=== PATIENT | male | born 1950 | race African-American/Black ===

== ENCOUNTER 2017-03-28 12:58 | Outpatient (CLI) | payer MEDICARE, MEDICAID ==
--- NOTE | 2017-03-28 18:22 | NM ---
RADIONUCLIDE THERAPY WITH RADIUM 223: 03/28/17 HISTORY: 66-year-old male with prostate cancer and bone metastasis. RADIONUCLIDE THERAPY: After discussing the risks, benefits and alternative and radiation issues with the patient, verbal a nd written consent was obtained for administration of [place] 223. The patient verbalized understandi ng. 138 microcuries of [place] 223 was slowly injected intravenously over one minute. There were no immed iate complications. This was the first of six treatments. Patient will return for the second treatment in six weeks. POS: AMY
== END 2017-03-28 12:59 | disposition home or self-care (01) ==
LOC: NM 12:58
PROVIDERS: ATTEND Radiology Radiation Oncology
DX: C79.51 Secondary malignant neoplasm of bone (principal); C61 Malignant neoplasm of prostate; M25.551 Pain in right hip; M79.604 Pain in right leg
CPT/HCPCS: 79101; A9606

== ENCOUNTER 2017-05-08 13:03 | Outpatient (CLI) | payer MEDICARE, OTHER ==
--- NOTE | 2017-05-08 15:21 | NM ---
RADIONUCLIDE THERAPY WITH RADIUM 223: Date: 05/08/17 HISTORY: 67-year-old male with prostate cancer and bone metastases. RADIONUCLIDE THERAPY: After discussing the risks, benefits and alternatives, and radiation precaution issues with the patie nt, verbal and written consent was obtained for intravenous administration of radium 223. The patient verbalized understanding. 142 microcuries of radium 223 were slowly injected intravenously over 1 minute. There were no immedia te complications. This was the second of six treatments. Patient will return for the third treatment in six weeks. POS: AMY
== END 2017-05-08 13:04 | disposition home or self-care (01) ==
LOC: NM 13:03
PROVIDERS: ATTEND Radiology Radiation Oncology
DX: C79.51 Secondary malignant neoplasm of bone (principal); C61 Malignant neoplasm of prostate
CPT/HCPCS: 79101; A9606

== ENCOUNTER 2017-05-22 16:30 | Outpatient (CLI) | payer MEDICARE, MEDICAID ==
--- NOTE | 2017-05-22 21:29 | MRI ---
THORACIC SPINE MRI WITH AND WITHOUT IV CONTRAST 05/22/17 PROVIDED CLINICAL HISTORY: Prostate cancer with bone metastases and mid back pain. FINDINGS: Comparison is made with the study dated 10/20/15. Spinal alignment appears normal. Vertebral body heights appear preserved. There is diffuse heterogene ity of the regional marrow signal including both vertebral bodies and posterior elements compatible w ith diffuse regional osseous metastatic disease. There is bony expansion if not epidural spread of tu mor at the posterior aspect of the T7 and T8 vertebral bodies. There is also tumor noted likely arisi ng from the left and right pedicles at the level of T8 as well as possibly also from the left lamina. This produces severe central canal stenosis with paucity also from the left lamina. This produces se miller central canal stenosis with paucity of CSF signal intensity surrounding the cord and paucity of fat signal intensity within the dorsal spinal canal. There is probably cord signal abnormality on the fluid sensitive sequences within the thoracic spinal cord at the T7 and T8 levels. There is associat ed foraminal narrowing to the left of midline at T8 and to the right of midline at T8. No additional significant central canal stenosis is apparent. The thoracic spinal cord demonstrates a n otherwise unremarkable MR appearance. Other than the contrast enhancement associated with the bone lesions, as well as the epidural enhancement seen at the T7-8 level, there is no abnormal contrast en hancement evident. IMPRESSION: Diffuse bony metastatic disease involving the thoracic spine, producing severe central canal stenosis at the T8 level with associated probable cord signal abnormality. Possibility of epidural involvemen t of tumor is not excluded. The findings regarding the canal stenosis and possible cord edema communi cated to Dr. Patel via telephone 6:01 p.m., 05/22/17. Code CR POS: AMY
== END 2017-05-22 16:31 | disposition home or self-care (01) ==
LOC: MRI 16:30
PROVIDERS: ATTEND Radiology Radiation Oncology
DX: C79.51 Secondary malignant neoplasm of bone (principal); C61 Malignant neoplasm of prostate; M48.04 Spinal stenosis, thoracic region
CPT/HCPCS: 72157

== ENCOUNTER 2017-06-15 12:12 | Outpatient (CLI) | payer MEDICARE, MEDICAID ==
--- NOTE | 2017-06-15 12:51 | NM ---
RADIONUCLIDE THERAPY WITH RADIUM-223: HISTORY: A 67-year-old male with prostate cancer and bone metastases. RADIONUCLIDE THERAPY: After discussing the risks, benefits, alternatives, and radiation precaution issues with the patient, verbal and written consent were obtained for intravenous administration of [place]-223. The patient verbalized understanding. 140 microcuries of [place]-223 were slowly injected intravenously over 1 minute. There were no immedi ate complications. This was the third of six treatments. The patient will return for the fourth treatment in six weeks. POS: AMY
== END 2017-06-15 12:13 | disposition home or self-care (01) ==
LOC: NM 12:12
PROVIDERS: ATTEND Radiology Radiation Oncology
DX: C79.51 Secondary malignant neoplasm of bone (principal); C61 Malignant neoplasm of prostate; M25.551 Pain in right hip; M79.604 Pain in right leg
CPT/HCPCS: 79101; A9606

== ENCOUNTER 2017-07-16 11:37 | Outpatient (CLI) | payer MEDICARE, MEDICAID ==
[~2017-07-16 11:37] MED LIST: Iopamidol 370 76% 100 ML VIAL ONE
[2017-07-16 12:19] LABS: Estimated GFR-MDRD - POC Greater than 90
--- NOTE | 2017-07-16 14:00 | CT ---
CT ANGIO OF CHEST PERFORMED WITH INTRAVENOUS CONTRAST ENHANCEMENT WITH 3D RECONSTRUCTIONS: HISTORY: Worsening shortness of breath. History of prostate cancer with bone mets. FINDINGS: Lungs show some atelectatic change in the lung bases. No confluent infiltrative process is seen. No pulmonary nodules. There is no significant mediastinal or hilar adenopathy. The thoracic aorta is normal in caliber. There is good pulmonary artery opacification without CT evidence for a pulmonary embolus. Visualized liver parenchyma shows no focal abnormalities. Right and left adrenal glands are normal in size. IMPRESSION: 1. Linear parenchymal change in the lung bases suggestive of atelectasis. 2. No CT evidence for pulmonary embolus. POS: EKATERINAH
== END 2017-07-16 11:38 | disposition home or self-care (01) ==
LOC: CT 11:37
PROVIDERS: ATTEND Radiology Radiation Oncology
DX: C61 Malignant neoplasm of prostate (principal); C79.51 Secondary malignant neoplasm of bone; R06.02 Shortness of breath
CPT/HCPCS: 71275

== ENCOUNTER 2017-07-25 09:56 | Outpatient (CLI) | payer MEDICARE, MEDICAID ==
--- NOTE | 2017-07-25 14:23 | NM ---
WHOLE BODY BONE SCAN: HISTORY: Malignant neoplasm of prostate. RADIOPHARMACEUTICAL: 33 mCi of Technetium 99m-MDP injected intravenously. COMPARISON: 02/09/17. FINDINGS: Numerous foci of tracer uptake is noted in the skull, spine, pelvis, ribs, sternum, clavicles, pelvis , right femur, and right tibia. Some of these lesions are worse, some improved and some stable. Tra cer excretion through the kidneys within normal limits. IMPRESSION: Widespread osseous metastatic disease with mixed response to therapy since 02/09/17. POS: AMY
== END 2017-07-25 09:57 | disposition home or self-care (01) ==
LOC: NM 09:56
PROVIDERS: ATTEND Radiology Radiation Oncology
DX: C61 Malignant neoplasm of prostate (principal); C79.51 Secondary malignant neoplasm of bone
CPT/HCPCS: 78306; A9503

== ENCOUNTER 2017-07-27 13:10 | Outpatient (CLI) | payer MEDICARE, MEDICAID ==
--- NOTE | 2017-07-27 14:23 | NM ---
RADIONUCLIDE THERAPY: (With [place]-223) Date: 07/27/17 HISTORY: 67-year-old male with prostate cancer and bone metastasis. TECHNIQUE/FINDINGS: After discussing the risks, benefits, alternatives, and radiation precaution issues with the patient, verbal and written consent were obtained for intravenous administration of [place]-223. The patient v erbalized understanding. 140 microcuries of [place]-223 were slowly injected intravenously over 1 minute. There were no immedia te complications. This was the 4th of 6 treatments. The patient will return for the 5th treatment in 6 weeks. IMPRESSION: Radionuclide therapy with [place]-223 as above. POS: AMY
== END 2017-07-27 13:11 | disposition home or self-care (01) ==
LOC: NM 13:10
PROVIDERS: ATTEND Radiology Radiation Oncology
DX: C61 Malignant neoplasm of prostate (principal); C79.51 Secondary malignant neoplasm of bone
CPT/HCPCS: 79101; A9606

== ENCOUNTER 2017-10-24 14:49 | Outpatient (CLI) | payer MEDICARE, MEDICAID | END 2017-10-24 14:50 | disposition home or self-care (01) | LOC: BICRAD 14:49 | PROVIDERS: ATTEND Internal Medicine Medical Oncology | DX: C61 Malignant neoplasm of prostate (principal); R11.2 Nausea with vomiting, unspecified; R16.0 Hepatomegaly, not elsewhere classified ==

== ENCOUNTER 2017-11-19 01:40 | Inpatient (IN) | payer MEDICARE, MEDICAID ==
[2017-11-19] MEDS ORDERED: Naloxone HCl 0.4 mg/ml Vial ONE (02:09)
[2017-11-19] MEDS ORDERED: Acetaminophen 650 MG Suppository ONE (02:15)
[2017-11-19 02:18] LABS: Band 27 % (5-11); Hemoglobin 8.6 g/dL (14.0-18.0); Lymphocytes 12 % (21-51); MDiff Complete? YES; Mean Corpuscular HGB CONC 32.4 g/dL (32.0-36.0); Mean Corpuscular Hemoglobin 32.2 pg (27.0-31.0); Mean Corpuscular Volume 99.4 fl (80.0-94.0); Mean Platelet Volume 5.5 fL (7.4-10.4); Metamyelocyte 2 % (0-0); Neutrophil 58 % (42-75); PLT Morphology Comment Appears Increased; Platelet Count 600 thou/uL (130-400); RBC Distribution Width 13.6 % (11.5-14.5); Red Blood Cell (RBC) Count 2.66 mill/uL (4.70-6.10); White Blood Cell (WBC) Count 12.2 thou/uL (4.8-10.8)
[2017-11-19 02:21] LABS: ALT (SGPT) 12 U/L (8-55); AST (SGOT) 25 U/L (5-34); Albumin 3.7 g/dL (3.4-4.8); Alkaline Phosphatase 114 U/L (40-150); Anion Gap 22 mmol/L (10-20); BUN (Urea Nitrogen) 55 mg/dL (8.4-25.7); Bilirubin, Total 0.8 mg/dL (0.2-1.2); Calc. Creatinine Clearance 0 mL/min (70-130); Carbon Dioxide 27 mmol/L (23-31); Chloride 92 mmol/L (98-107); Estimated GFR-MDRD 29; Globulin 3.9 g/dL (2.4-3.5); Glucose 186 mg/dL (80-115); Potassium 4.8 mmol/L (3.5-5.1); Protein, Total 7.6 g/dL (5.8-8.1); Sodium 136 mmol/L (136-145)
[2017-11-19 02:24] LABS: Bilirubin Small (Negative); Blood, Urine Negative (Negative); Clarity CLOUDY (Clear); Glucose, Urine (Dipstick) Negative (Negative); Leukocyte Negative (Negative); Nitrite Negative (Negative); Protein, Urine (Dipstick) Negative (Neg-Trace); Specific Gravity, Urine 1.025 (1.002-1.036); Urobilinogen 0.2 mg/dL (0.2-1.0)
[2017-11-19 02:24] LABS: Calcium 12.2 mg/dL (7.8-10.44)
[2017-11-19] MEDS ORDERED: Cefepime 2 GM in Sodium Chloride 0.9% 100 ML IVPB SCH (03:00)
[2017-11-19] MEDS ORDERED: Ondansetron HCl/PF 4 MG/2 ML Vial IVP PRN (04:44)
[2017-11-19] MEDS ORDERED: Ondansetron ODT 4 MG TAB SL PRN (04:44)
[2017-11-19] MEDS ORDERED: Acetaminophen 325 MG TAB PO PRN (04:44)
[2017-11-19 05:00] VITALS: BMI 27.2
[2017-11-19] MEDS: Sodium Chloride 0.9% 1,000 ML IV SCH ×2 (05:20→23:36)
--- NOTE | 2017-11-19 05:45 | HP ---
CHIEF COMPLAINT: Altered mental status and rigors. HISTORY OF PRESENT ILLNESS: Patient is a 67-year-old male with a history of known metastatic prostat e cancer with metastases to multiple sites of the bone including the spine cranium and ribs. Recentl y, the patient was on hydrocodone for pain but was continued to have significant pain in the hips. [place] [facility] saw Dr. Irby who subsequently encouraged the patient to MS Contin 30 mg p.o. b.i.d. It was onl y a few days ago. Since that time, the patient has been "out of it" according to his fiancee who is with him tonight. The patient has not been wanting to eat or drink much. Therefore, last evening, s he attempted to give him an Ensure to drink. After he drink the Ensure within about an hour, he [place] vomiting. After the vomiting, he started having some wheezing and then experienced some rigors. At that time, the patient's fiancee realized there was something more going on and she brought him t o the emergency department. He continues to be fairly out of it. Apparently, the patient did respon d to some Narcan in the emergency department, became more awake and alert. REVIEW OF SYSTEMS: Notable for those things in history of present illness. Patient also has had sammie e constipation that has been primarily related to his pain medications. Other than the events of the last 4 days, the patient's fiancee indicates that she is unaware of any significant other issues in an eleven-system review. PAST MEDICAL HISTORY: Notable for the metastatic prostate cancer. There is no other past medical hi story. PAST SURGICAL HISTORY: None. FAMILY HISTORY: Patient's mother had diabetes and some heart disease. Father's history is not known . Patient has multiple siblings with diabetes mellitus. SOCIAL HISTORY: Includes tobacco abuse, but the patient quit in 1988. He has no alcohol consumption . He does have the fiancee. He is a FULL CODE. Patient is unable to name a surrogate decision make r. ALLERGIES: NEOSPORIN. CURRENT MEDICATIONS: Xtandi 160 mg p.o. daily, gabapentin 200 mg p.o. b.i.d., Flomax 0.4 mg at bedti me, [place] 10/325 one p.o. q.6 hours p.r.n. and morphine extended-release 30 mg p.o. q.12 hours. PHYSICAL EXAMINATION: VITAL SIGNS: Temperature is 100.2, pulse 112, respirations 18, O2 sat 92% on 2 liters, BP is 124/65. GENERAL APPEARANCE: Age appropriate male. He is in no distress, but he does appear encephalopathic. Patient tends to be somnolent. He will occasionally open his eyes, but not focus; however, when ag gressively awaken the patient will make eye contact answer questions and then become a little more so mnolent again. HEENT: Pupils are constricted. There is no OP lesions. NECK: Supple and symmetric. CARDIOVASCULAR: Regular rate and rhythm without murmurs. LUNGS: Have some scattered rales primarily at the bases and slightly worse on the right. ABDOMEN: Soft, nondistended, positive bowel sounds. SKIN: Warm and dry with no edema. LABORATORY DATA: Sodium 136, potassium 4.8, chloride 92, CO2 of 27, BUN 55, creatinine is 2.69, gluc ose 186. Lactic acid 3.2, calcium 12.2. AST is 25, ALT is 12. Albumin is 3.7. White count 12.2, h emoglobin 8.6, MCV 99.4, platelet count is 600, is 58% neutrophils, 27% bands, 12% lymphocytes. Urin alysis basically negative. Chest x-ray by my interpretation appears to have some scattered bilateral alveolar infiltrates, which seemed to be more on the right. CT of the brain reveals no hemorrhage. IMPRESSION AND PLAN: 1. Sepsis. The patient appears to have likely aspirated. He has been tachycardic and febrile with some hypoxia. He does not have a significant leukocytosis, but profound bandemia. Patient has recei lance cefepime and Levaquin and that was continued now. We will await blood cultures. Patient has reece arently received about 3 liters of fluid total at this point. We will continue with 100 mL normal sa line an hour. Rechecking lactic acid level now. 2. Acute renal failure. Patient has significant elevation of his BUN and creatinine, which are new. Patient's prior creatinine levels have typically been below one. Again, patient has already receiv ed significant bullous hydration. We will continue with those and recheck his values. 3. Hypercalcemia. This is likely due to combination of some dehydration as well as the bone mets. Initial best treatment option is IV hydration. We will recheck those values are shortly to confirm t hat it is improving. 4. Aspiration. Patient appears to have had some vomiting and likely had some aspiration as this imm ediately preceded the patient's wheezing and rigors. He is on broad-spectrum antibiotics for coverag e. 5. Narcotic overdose. Patient recently had some changes in his medications and appeared to be causi ng some significant obtundation. He did receive a dose of Narcan in the ER. He appears to be stable at this time. We will hold off on any additional doses and allow him to metabolize what he has. 6. Metastatic prostate cancer with multiple bony metastases. The patient at some point need some mo re pain medications; however, we will hold off on that until he improves the need. In the meantime, we will consult Dr. Irby.
[2017-11-19 05:54] LABS: Lactic Acid 1.1 mmol/L (0.5-2.2)
--- NOTE | 2017-11-19 07:46 | RAD ---
ONE VIEW CHEST: HISTORY: Altered mental status. FINDINGS: AP view chest is obtained on 11/19/17. Comparison is made to previous exam from 09/24/15. AP view chest demonstrates areas of heterogeneous bony density throughout numerous long bones and spi ne and ribs. This is compatible with extensive osseous metastatic disease. Pulmonary vascular congestion is seen. There are areas of airspace opacity seen in both lung bases as well as some airspace opacities seen i n the perihilar areas. Findings may represent possible bilateral areas of pneumonia. IMPRESSION: 1. Diffuse and extensive osseous metastatic disease. 2. Airspace opacities compatible with possible bilateral pneumonia. Followup films to resolution re commended. POS: [facility]
--- NOTE | 2017-11-19 08:37 | CT ---
PRELIMINARY REPORT/[facility]/EMERGENTY AFTER-HOURS PROCEDURE CT Head Without Intravenous Contrast CLINICAL HISTORY: 67 years old, male; Signs and symptoms; Altered mental status/memory loss; Confusion or disorientatio n; Patient HX: Er 13; 67 yo m presents to ed with mental status changes. Ems reports pt has stage 4 p rostate cancer. Pt started 30 mg morphine night, last given at 10 am yesterday morning by family. Ems reports altered mental status, ao x0. Family reports pt fell about 2 weeks ago , no trauma or injury. Family reports metastasis mostly in pelvis and thigh in the bone. Family start ed eeing slight AMS on Sunday, but worsened yesterday. TECHNIQUE: Axial computed tomography images of the head/brain without intravenous contrast. COMPARISON: No relevant prior studies available. FINDINGS: Brain: Scattered areas of hypoattenuation, likely chronic small vessel ischemic change, demyelination , or gliosis. Incidental note of bilateral basal ganglia calcifications. Ventricles: Normal. Bones/joints: Normal. No acute fracture. Soft tissues: Normal. Vasculature: Atherosclerotic vascular calcifications. Sinuses: Ethmoid and right maxillary sinus mucosal thickening. Mastoid air cells: Normal as visualized. No mastoid effusion. IMPRESSION: 1. No acute findings. 2. Non-acute findings are described above. Thank you for allowing us to participate in the care of your patient. Dictated and Authenticated by: Seven Mauricio MD 11/19/2017 3:26 AM Central Time ([place] & [place]) FINAL REPORT CT HEAD NONCONTRAST: DATE: 11/19/17. TIME: Performed on an emergency basis at 0217 hours. HISTORY: Altered mental status. FINDINGS: Agree with the preliminary report by Dr. Mauricio from [facility]. No acute intracranial abnorm alities are demonstrated on noncontrast CT head. POS: OFF
[2017-11-19] MEDS: Enoxaparin Sodium 40 MG/0.4 ML SYRINGE SC SCH (08:52)
--- NOTE | 2017-11-19 11:37 | PDOC.PN ---
- Subjective Encounter Start Date: 11/19/17 Encounter Start Time: 11:35 Mr. Jose was seen today in follow-up of aspiration pneumonia and altered mental status. His is at the bedside. She says he is more alert but not at his baseline. - Objective Resuscitation Status: Resuscitation Status FULL:Full Resuscitation MAR Reviewed: Yes Vital Signs & Weight: Vital Signs (12 hours) Temp Pulse Resp BP Pulse Ox 11/19/17 11:33 97.5 F L 97 18 124/68 96 11/19/17 09:02 98.9 F 107 H 16 115/69 97 11/19/17 08:00 98.9 F 107 H 16 97 11/19/17 04:20 100.2 F H 112 H 18 124/65 92 L Result Diagrams: 11/19/17 01:47 11/19/17 01:47 Phys Exam - Physical Examination HEENT: PERRLA, sclera anicteric Respiratory: no rhonchi, wheezing present + rales in both lung- to mid chest Cardiovascular: RRR, no significant murmur, no rub Gastrointestinal: soft, non-tender, no distention, positive bowel sounds Musculoskeletal: no edema Dx/Plan (1) Aspiration pneumonia due to food (regurgitated) Code(s): J69.0 - PNEUMONITIS DUE TO INHALATION OF FOOD AND VOMIT Status: Acute (2) Hypercalcemia of malignancy Code(s): E83.52 - HYPERCALCEMIA Status: Acute (3) Prostate cancer metastatic to bone Code(s): C61 - MALIGNANT NEOPLASM OF PROSTATE; C79.51 - SECONDARY MALIGNANT NEOPLASM OF BONE Status: Acute (4) Chronic kidney disease Code(s): N18.9 - CHRONIC KIDNEY DISEASE, UNSPECIFIED Status: Chronic - Plan * Aspiration Pneumonia- Will place him on Zosyn for better anerobic coverage. He had a speech therapy evaluation this morning, and he did well. He likely aspirated due to being weak and lethargic yesterday, which has since improved. * Hypercalcemia- due to Metastatic Prostate Cancer- his calcium this morning was reported to be about the same as last night- will give a dose of Zometa * Lethargy- likely from elevated calcium, but also he may have been overmedicated with Morphine. He had been taking 30mg of MS-Contin- can likely decrease this to 15mg, and titrate if needed * Creatinine is elevated- likely chronic kidney disease- will monitor renal function * PT evaluation
[2017-11-19] MEDS: Piperacillin/Tazobactam 2.25 GM in Sodium Chloride 0.9% 100 ML IVPB SCH ×2 (12:41→20:32)
[2017-11-19] MEDS ORDERED: ENZALUTAMIDE 40 MG PO SCH (12:45)
[2017-11-19] MEDS: Tamsulosin HCl 0.4 MG CAP PO SCH (20:32)
--- NOTE | 2017-11-19 22:12 | CON ---
DATE OF CONSULTATION: 11/19/2017 REASON FOR CONSULTATION: Metastatic prostate cancer. HISTORY OF PRESENT ILLNESS: Mr. Jose is a 67-year-old -[place] gentleman who was diagnosed with prostate cancer in 2016. He has completed out multiple chemotherapy regimens, most recently he has been on Xtandi, but unfortunately did progress in the last month. His PSA last week when he saw Dr. Irby was 1379. The plan was to switch him to Jevtana IV. He was having significant bone pa in. During this visit last week and was started on morphine 30 mg b.i.d. Since that time, he has be en more lethargic. He had an episode of emesis 2 days ago and had some wheezing. Shortly thereafter , he was brought to the emergency room for evaluation and felt he had an aspiration pneumonia. He is currently on antibiotics. Lab work revealed a calcium of 12.2 and a creatinine of 2.69. His baseli ne creatinine has been around 1.3. The patient was given IV fluids. He did receive a dose of Narcan in the emergency room with improvement in his mental status. PAST MEDICAL HISTORY: 1. Metastatic prostate cancer. 2. Hyperlipidemia. PAST SURGICAL HISTORY: None. ALLERGIES: NEOSPORIN. HOME MEDICATIONS: 1. Xtandi 40 mg 4 tabs daily. 2. [place] 10/325,1-2 p.r.n. 3. Morphine ER 30 mg b.i.d. 4. Gabapentin 100 mg 2 tabs b.i.d. 5. Flomax 0.4 mg daily. FAMILY HISTORY: Noncontributory. SOCIAL HISTORY: , former smoker. No illicit drug use. REVIEW OF SYSTEMS: Positive for pain. Otherwise, negative. PHYSICAL EXAMINATION: VITAL SIGNS: Temperature is 98.9, pulse is 103, respiratory rate 18, BP is 129/91. He is 96% on 2 l iters. GENERAL: Well-developed, well-nourished male in no acute distress. HEENT: Normocephalic, atraumatic. Pupils equal and reactive to light. NECK: Supple. CARDIOVASCULAR: Regular rate and rhythm. LUNGS: Clear anterior. ABDOMEN: Soft, nontender. Bowel sounds are positive. EXTREMITIES: No clubbing, cyanosis or edema. SKIN: No rash. HEMATOLOGIC: No petechia or purpura. NEUROLOGIC: Nonfocal. PSYCHIATRIC: The patient is alert and oriented, but slow to answer questions. PERTINENT LABORATORIES AND X-RAYS: Current WBCs 12.2, hemoglobin 8.6, hematocrit 26.4, platelet coun t 600,000. He has got 58% neutrophils, 27% bands, 12% lymphocytes. Sodium is 136, potassium 4.8, ch loride 92, CO2 is 27, BUN is 55, creatinine 2.69. Lactic acid is 1.1, calcium is 10.8, bilirubin is 0.8, AST is 25, ALT is 12, alkaline phosphatase is 114. Serum total protein 7.6, albumin 3.7, globul in 3.9. Brain CT showed no acute findings. Chest x-ray showed some airspace opacities compatible wi th bilateral pneumonia. ASSESSMENT: 1. Metastatic prostate cancer with recent progression. 2. Pain, recently prescribed MS Contin. 3. Hypercalcemia. 4. Aspiration pneumonia. 5. Altered mental status likely from #2 and #3. 6. Acute kidney injury. DISCUSSION: The patient has been started on IV fluids. He has received a renally adjusted dose of Z ometa. We will follow his calcium. His morphine has been discontinued and he does have Bor[place] 10/325 for pain. I suspect calcium level combined with the morphine may have caused this much more likely that the calcium is responsible as he is not narcotic-naive and generally, there is very little neuro logical changes and sedation with MS Contin, but will continue to hold for now. He is on antibiotics for aspiration pneumonia. We will check his labs in the morning and follow him closely. Thank you for the consult.
[2017-11-20 05:55] LABS: Anion Gap 17 mmol/L (10-20); BUN (Urea Nitrogen) 36 mg/dL (8.4-25.7); Calc. Creatinine Clearance 81 mL/min (70-130); Calcium 10.6 mg/dL (7.8-10.44); Carbon Dioxide 20 mmol/L (23-31); Chloride 103 mmol/L (98-107); Estimated GFR-MDRD 78; Glucose 107 mg/dL (80-115); Potassium 4.7 mmol/L (3.5-5.1); Sodium 135 mmol/L (136-145)
[2017-11-20] MEDS: Piperacillin/Tazobactam 2.25 GM in Sodium Chloride 0.9% 100 ML IVPB SCH ×3 (06:10→20:36)
[2017-11-20 06:19] LABS: Band 25 % (5-11); Eosinophils 1 % (0-10); Hemoglobin 6.9 g/dL (14.0-18.0); Lymphocytes 2 % (21-51); MDiff Complete? YES; Mean Corpuscular HGB CONC 32.4 g/dL (32.0-36.0); Mean Corpuscular Hemoglobin 31.8 pg (27.0-31.0); Mean Platelet Volume 5.4 fL (7.4-10.4); Metamyelocyte 3 % (0-0); Monocytes 2 % (0-10); Neutrophil 67 % (42-75); PLT Morphology Comment Appears Increased; Platelet Count 446 thou/uL (130-400); RBC Distribution Width 13.7 % (11.5-14.5); Red Blood Cell (RBC) Count 2.18 mill/uL (4.70-6.10); White Blood Cell (WBC) Count 13.4 thou/uL (4.8-10.8)
[2017-11-20] MEDS ORDERED: ENZALUTAMIDE 160 MG PO SCH (09:00)
[2017-11-20] MEDS: HYDROcodone/Acetaminophen 10/325 mg Tablet PO PRN ×3 (09:47→20:36)
[2017-11-20] MEDS: Enoxaparin Sodium 40 MG/0.4 ML SYRINGE SC SCH (09:48)
[2017-11-20] MEDS: Sodium Chloride 0.9% 1,000 ML IV SCH (09:48)
[2017-11-20] MEDS: ENZALUTAMIDE 40 MG PO SCH (09:51)
--- NOTE | 2017-11-20 10:34 | PDOC.PN ---
- Subjective Encounter Start Date: 11/20/17 Encounter Start Time: 10:32 Mr. Jose was seen today in follow-up of hypercalcemia. His mentation has improved according to his who is at the bedside. He does not have any complaints. He admits to a bit of back pain early this morning, but otherwise ok. - Objective Resuscitation Status: Resuscitation Status FULL:Full Resuscitation MAR Reviewed: Yes Vital Signs & Weight: Vital Signs (12 hours) Temp Pulse Resp BP Pulse Ox 11/20/17 08:00 98.7 F 117 H 20 162/93 H 93 L 11/20/17 04:00 98.7 F 110 H 20 156/85 H 94 L Result Diagrams: 11/20/17 04:55 11/20/17 04:55 Phys Exam - Physical Examination HEENT: PERRLA Respiratory: no wheezing, no rales, no rhonchi, clear to auscultation bilateral Cardiovascular: RRR, no significant murmur, no rub Gastrointestinal: soft, non-tender, positive bowel sounds Musculoskeletal: no edema Dx/Plan (1) Aspiration pneumonia due to food (regurgitated) Code(s): J69.0 - PNEUMONITIS DUE TO INHALATION OF FOOD AND VOMIT Status: Acute (2) Hypercalcemia of malignancy Code(s): E83.52 - HYPERCALCEMIA Status: Acute (3) Prostate cancer metastatic to bone Code(s): C61 - MALIGNANT NEOPLASM OF PROSTATE; C79.51 - SECONDARY MALIGNANT NEOPLASM OF BONE Status: Acute (4) Chronic kidney disease Code(s): N18.9 - CHRONIC KIDNEY DISEASE, UNSPECIFIED Status: Chronic (5) Acute anemia Code(s): D64.9 - ANEMIA, UNSPECIFIED Status: Acute - Plan * Hypercalcemia- the level is better after Zometa. His mentation has improved as well. To avaoid volume overload will discontinue IV fluids * Acute renal failure- improved- likely prerenal azotemia * anemia- his H&H has dropped, this may be due to a dilution effect- will transfuse a unit- ? related to chemotherapy, or cancer with bone mets). * Pneumonia- will continue Zosyn 1-2 more days then transition to Augmentin * Chronic pain from bony metastasis- so far Seymour is relieving pain- will defer to Oncology * Encourage ambulation
--- NOTE | 2017-11-20 12:53 | PQF ---
CLINICAL DOCUMENTATION IMPROVEMENT CLARIFICATION FORM: ICD-10 Updated PLEASE DO AN ADDENDUM TO THE PROGRESS NOTE WITH ANY DOCUMENTATION UPDATES OR ADDITIONS AND CARRY THROUGH TO DC SUMMARY. THANK YOU. DATE: 11/20 ATTN: DR. ADRIANA CEDILLO Please exercise your independent, professional judgment in responding to the clarification form. Clinical indicators are provided on the bottom of this form for your review. Please check appropriate box(s): [ X Encephalopathy: Type: [ ] Acute [ ] Subacute [ ] Chronic Etiology: [ X ] Metabolic [ ] Toxic [ ] Septic [ ] Drug induced: [ ] Unspecified [ ] Other (please specify) [ ] Other diagnosis [ ] Unable to determine For continuity of documentation, please document condition throughout progress notes and discharge summary. Thank You. CLINICAL INDICATORS - SIGNS / SYMPTOMS / LABS ER PRESENTATION 11/19: PRESENTS FOR PROGRESSIVE AMS SINCE SUNDAY. EMS A/O X0, REPORTS PT HAS STG 4 PROSTATE CX, PT STARTED 30 MG MORPHINE SUNDAY NIGHT ...FAMILY STARTED SEEING SLIGHT AMS ON SUNDAY, BUT WORSENED YESTERDAY. NEURO EXAM: ALTERED, ALERT BUT NONVERBAL, DOES NOT FOLLOW COMMANDS ER PHYSICIAN DIAGNOSIS: SEVERE SEPSIS, AMS, MEDICATION EFFECT, PNEUMONIA PHYSICIAN H&P 11/19: GENERAL APPEARANCE: HE DOES APPEAR ENCEPHALOPATHIC. PT TENDS TO BE SOMNOLENT. HE WILL OCCASIONALLY OPEN HIS EYES, BUT NOT FOCUS; HOWEVER, WHEN AGGRESSIVELY AWAKENED THE PT WILL MAKE EYE CONTACT, ANSWER QUESTIONS & THEN BECOME A LITTLE MORE SOMNOLENT AGAIN. IMPRESSION/ PLAN: 1) SEPSIS; 5) NARCOTIC OVERDOSE. PT RECENTLY HAS SOME CHANGES IN HIS MEDICATIONS & APPEARED TO BE CAUSING SOME SIGNIFICANT OBTUNDATION. HE DID RECEIVE A DOSE OF NARCAN IN THE ER. PHYSICIAN PN 11/19: AT BEDSIDE AND SAYS HE IS MORE ALERT BUT NOT AT HIS BASELINE. PHYSICIAN PN 11/20: HIS MENTATION HAS IMPROVED ACCORDING TO HIS WHO IS AT THE BEDSIDE. CALCIUM: 12.2 (ON ADMIT, 11/19) 10.6-10.8 (11/19 -) RISK FACTORS: VOMITING W/ASPIRATION PNEUMONIA HYPERCALCEMIA ACUTE RENAL FAILURE TREATMENTS: NARCAN ADMINISTRATION (IN ED 11/19) IVF (NS 2.7L IN ED 11/19, INFUSION CON'T ON FLOOR) IV ZOMETA (11/19) THANK YOU! Albertina (This form is maintained as a part of the permanent medical record) 2014 [employer]. All Rights Reserved Albertina Strauss RN, BSN [email or web address] Office: [phone] [facility]
--- NOTE | 2017-11-20 13:03 | PQF ---
CLINICAL DOCUMENTATION IMPROVEMENT CLARIFICATION FORM: ICD-10 Updated PLEASE DO AN ADDENDUM TO THE PROGRESS NOTE WITH ANY DOCUMENTATION UPDATES OR ADDITIONS AND CARRY THROUGH TO DC SUMMARY. THANK YOU. DATE: 11/20 ATTN: DR. ADRIANA CEDILLO Please exercise your independent, professional judgment in responding to the clarification form. Clinical indicators are provided on the bottom of this form for your review. Please check appropriate box(s) to clarify if the following diagnosis has been ruled in or ruled out: SEPSIS [X ] Ruled in diagnosis [X ] Continue to treat [ ] Resolved [ ] Ruled out diagnosis [ X ] Other diagnosis __Sepsis due to Pneumonia, aspiration [ ] Unable to determine For continuity of documentation, please document condition throughout progress notes and discharge summary. Thank You. CLINICAL INDICATORS - SIGNS / SYMPTOMS / LABS ER PRESENTATION 11/19: AMS T: 103.3 (R) HR: 119-155 RR: 23 BANDS: 27% LACTIC ACID: 3.2 TREATMENT IN ER: 2.7L NS, IV LEVAQUIN, & CEFEPIME ER PHYSICIAN DIAGNOSES: SEVERE SEPSIS, PNEUMONIA, AMS PHYSICIAN H&P 11/19: IMPRESSION & PLAN: 1) SEPSIS. THE PT APPEARS TO HAVE LIKELY ASPIRATED. HE HAS BEEN TACHYCARDIC & FEBRILE W/SOME HYPOXIA. HE DOES NOT HAVE SIGNIFICANT LEUKOCYTOSIS, BUT PROFOUND BANDEMIA. RISK FACTORS: ASPIRATION PNEUMONIA AMS TREATMENTS: IVF (2.7 L NS IN ED, MAINTENANCE RATE THEREAFTER) IV ANTIBIOTICS (LEVAQUIN & CEFEPIME IN ER; ZOSYN 11/19 - PRESENT) THANK YOU! Albertina (This form is maintained as a part of the permanent medical record) 2015 [employer]. All Rights Reserved Albertina Strauss RN, BSN [email or web address] Office: [phone] [facility]ITAL[facility]
[2017-11-20] MEDS: Tamsulosin HCl 0.4 MG CAP PO SCH (20:36)
[2017-11-21] MEDS: HYDROcodone/Acetaminophen 10/325 mg Tablet PO PRN ×3 (02:45→20:17)
[2017-11-21 05:03] LABS: Anion Gap 15 mmol/L (10-20); BUN (Urea Nitrogen) 19 mg/dL (8.4-25.7); Calc. Creatinine Clearance 107 mL/min (70-130); Calcium 9.8 mg/dL (7.8-10.44); Carbon Dioxide 23 mmol/L (23-31); Chloride 99 mmol/L (98-107); Estimated GFR-MDRD Greater than 90; Glucose 138 mg/dL (80-115); Potassium 4.1 mmol/L (3.5-5.1); Sodium 133 mmol/L (136-145)
[2017-11-21 05:05] LABS: Band 11 % (5-11); Eosinophils 1 % (0-10); Hemoglobin 7.9 g/dL (14.0-18.0); Lymphocytes 3 % (21-51); MDiff Complete? YES; Mean Corpuscular Hemoglobin 31.9 pg (27.0-31.0); Mean Corpuscular Volume 96.6 fL (78.0-98.0); Mean Platelet Volume 5.6 fL (7.4-10.4); Metamyelocyte 3 % (0-0); Monocytes 5 % (0-10); Neutrophil 77 % (42-75); PLT Morphology Comment Appears Adequate; Platelet Count 380 thou/uL (130-400); Red Blood Cell (RBC) Count 2.49 mill/uL (4.70-6.10); White Blood Cell (WBC) Count 15.8 thou/uL (4.8-10.8)
[2017-11-21] MEDS: Piperacillin/Tazobactam 2.25 GM in Sodium Chloride 0.9% 100 ML IVPB SCH ×3 (05:27→21:34)
[2017-11-21] MEDS: ENZALUTAMIDE 40 MG PO SCH (09:23)
[2017-11-21] MEDS: Enoxaparin Sodium 40 MG/0.4 ML SYRINGE SC SCH (09:25)
--- NOTE | 2017-11-21 11:12 | PDOC.PN ---
- Subjective Encounter Start Date: 11/21/17 Encounter Start Time: 11:10 Mr. Jose is more lert, but a bit confused. He says he had a bad night last night because the pain returned. He feels like the nursing staff could not get a ahndle on it. He says it is a little beter this morning. - Objective Resuscitation Status: Resuscitation Status FULL:Full Resuscitation MAR Reviewed: Yes Vital Signs & Weight: Vital Signs (12 hours) Temp Pulse Resp BP Pulse Ox 11/21/17 08:00 99.0 F 119 H 20 165/95 H 94 L I&O: 11/20/17 11/21/17 11/22/17 06:59 06:59 06:59 Intake Total 350 Balance 350 Result Diagrams: 11/21/17 04:19 11/21/17 04:19 Phys Exam - Physical Examination HEENT: PERRLA Respiratory: no wheezing, no rales, no rhonchi, clear to auscultation bilateral Cardiovascular: RRR, no significant murmur, no rub Gastrointestinal: soft, non-tender, positive bowel sounds Musculoskeletal: no edema Dx/Plan (1) Aspiration pneumonia due to food (regurgitated) Code(s): J69.0 - PNEUMONITIS DUE TO INHALATION OF FOOD AND VOMIT Status: Acute (2) Hypercalcemia of malignancy Code(s): E83.52 - HYPERCALCEMIA Status: Acute (3) Prostate cancer metastatic to bone Code(s): C61 - MALIGNANT NEOPLASM OF PROSTATE; C79.51 - SECONDARY MALIGNANT NEOPLASM OF BONE Status: Acute (4) Chronic kidney disease Code(s): N18.9 - CHRONIC KIDNEY DISEASE, UNSPECIFIED Status: Chronic (5) Acute anemia Code(s): D64.9 - ANEMIA, UNSPECIFIED Status: Acute - Plan * Chronic pain from metastatic cancer- will re-start MS-Contin, but at a lower dose, since he had some much sedation before * Tachycardia- ? etiology- related to pain- will repeat a chest X-ray to determine the progress of the pneumonia * Hypercalcemia- improved * Acute renal failure- improved * Will keep him on telemetry due to the elevated heart rate * Anemia- patient had an appropriate response to the transfusion * PT/OT to help with ambulation.
[2017-11-21] MEDS: Morphine ER 15 MG TAB PO SCH ×2 (11:33→23:34)
--- NOTE | 2017-11-21 12:12 | RAD ---
SINGLE VIEW OF THE CHEST: Comparison: 11-19-17 History: Pneumonia follow up. FINDINGS: Single view of the chest shows a normal sized cardiomediastinal silhouette. There are stable multifoc al opacities scattered throughout the lungs consistent with multifocal pneumonia. There is scattered sclerotic foci in the bones which could be secondary to metastatic disease. IMPRESSION: 1. Stable multifocal pneumonia. 2. Sclerotic lesions in the bones are likely secondary to osseous metastatic disease. POS: [facility]
[2017-11-21] MEDS: Tamsulosin HCl 0.4 MG CAP PO SCH (20:17)
[2017-11-21] MEDS: Gabapentin 100 MG CAP PO SCH (20:17)
[2017-11-21] MEDS ORDERED: cloNIDine 0.1 MG TAB PO PRN (20:20)
[2017-11-21] MEDS ORDERED: Labetalol HCl 100 MG/20 ML VIAL SLOW IVP PRN (20:20)
[2017-11-21] MEDS ORDERED: Lorazepam 0.5 MG TAB PO PRN (20:20)
[2017-11-21] MEDS ORDERED: Lorazepam 2 MG/ML VIAL SLOW IVP PRN (20:21)
[2017-11-21] MEDS: Sodium Chloride 0.9% 1,000 ML IV SCH (21:34)
[2017-11-22] MEDS: HYDROcodone/Acetaminophen 10/325 mg Tablet PO PRN ×2 (03:02→21:20)
[2017-11-22] MEDS ORDERED: Clopidogrel Bisulfate 75 MG TAB ONE (04:56)
[2017-11-22 05:48] LABS: Anion Gap 13 mmol/L (10-20); BUN (Urea Nitrogen) 16 mg/dL (8.4-25.7); Calc. Creatinine Clearance 107 mL/min (70-130); Calcium 8.4 mg/dL (7.8-10.44); Carbon Dioxide 25 mmol/L (23-31); Chloride 99 mmol/L (98-107); Estimated GFR-MDRD Greater than 90; Glucose 112 mg/dL (80-115); Sodium 133 mmol/L (136-145)
[2017-11-22 06:07] LABS: Free T4 (Free Thyroxine) 1.06 ng/dL (0.70-1.48); Thyroid Stimulating Hormone 0.9395 uIU/mL (0.35-4.94)
[2017-11-22] MEDS: Piperacillin/Tazobactam 2.25 GM in Sodium Chloride 0.9% 100 ML IVPB SCH ×3 (06:13→21:20)
[2017-11-22 06:31] LABS: Band 5 % (5-11); Eosinophils 1 % (0-10); Hemoglobin 7.6 g/dL (14.0-18.0); MDiff Complete? YES; Mean Corpuscular HGB CONC 32.8 g/dL (32.0-36.0); Mean Corpuscular Hemoglobin 31.9 pg (27.0-31.0); Mean Corpuscular Volume 97.1 fL (78.0-98.0); Mean Platelet Volume 5.3 fL (7.4-10.4); Metamyelocyte 1 % (0-0); Monocytes 7 % (0-10); Myelocyte 2 % (0-0); Neutrophil 84 % (42-75); Platelet Count 299 thou/uL (130-400); RBC Distribution Width 13.9 % (11.5-14.5); Red Blood Cell (RBC) Count 2.39 mill/uL (4.70-6.10); White Blood Cell (WBC) Count 13.5 thou/uL (4.8-10.8)
[2017-11-22] MEDS: Gabapentin 100 MG CAP PO SCH ×2 (10:22→21:19)
[2017-11-22] MEDS: Morphine ER 15 MG TAB PO SCH ×2 (10:23→23:34)
[2017-11-22] MEDS: Enoxaparin Sodium 40 MG/0.4 ML SYRINGE SC SCH (10:25)
[2017-11-22] MEDS: ENZALUTAMIDE 40 MG PO SCH (10:29)
[2017-11-22] MEDS ORDERED: Ibuprofen 800 MG TAB PO PRN (10:49)
--- NOTE | 2017-11-22 11:01 | PDOC.PN ---
- Subjective Encounter Start Date: 11/22/17 Encounter Start Time: 11:00 Mr. Jose was seen today in follow-up of cancer related pain, and hypercalcemia , and pneumonia. He has had better pain control, until this morning, he began experiencing pain on his left side, similar to what he experienced before. - Objective Resuscitation Status: Resuscitation Status FULL:Full Resuscitation MAR Reviewed: Yes Vital Signs & Weight: Vital Signs (12 hours) Temp Pulse Resp BP Pulse Ox 11/22/17 07:37 98.8 F 107 H 16 132/81 96 11/22/17 03:00 98.6 F 115 H 20 164/96 H 94 L 11/21/17 23:20 99.7 F H 118 H 20 149/87 H 95 Weight Weight 189 lb I&O: 11/21/17 11/22/17 11/23/17 06:59 06:59 06:59 Intake Total 350 1883 Output Total 1425 Balance 350 458 Result Diagrams: 11/22/17 05:14 11/22/17 05:14 Phys Exam - Physical Examination HEENT: PERRLA Respiratory: no wheezing, no rales, no rhonchi, clear to auscultation bilateral Cardiovascular: RRR, no significant murmur, no rub Gastrointestinal: soft, non-tender, positive bowel sounds Musculoskeletal: no edema Dx/Plan (1) Aspiration pneumonia due to food (regurgitated) Code(s): J69.0 - PNEUMONITIS DUE TO INHALATION OF FOOD AND VOMIT Status: Acute (2) Hypercalcemia of malignancy Code(s): E83.52 - HYPERCALCEMIA Status: Acute (3) Prostate cancer metastatic to bone Code(s): C61 - MALIGNANT NEOPLASM OF PROSTATE; C79.51 - SECONDARY MALIGNANT NEOPLASM OF BONE Status: Acute (4) Chronic kidney disease Code(s): N18.9 - CHRONIC KIDNEY DISEASE, UNSPECIFIED Status: Chronic (5) Acute anemia Code(s): D64.9 - ANEMIA, UNSPECIFIED Status: Acute - Plan * Cancer pain- will continue MS Contin at 15mg twice a day, but will add Ibuprofen to alternate with [place] * Pneumonia- Continue Zosyn, and can change to Augmentin at the time of discharge * Hypercalcemia- improved. * Acute renal failure- improved * Likely home tomorrow
[2017-11-22] MEDS: Sodium Chloride 0.9% 1,000 ML IV SCH ×2 (14:00→23:36)
[2017-11-22] MEDS: Tamsulosin HCl 0.4 MG CAP PO SCH (21:20)
[2017-11-23] MEDS: HYDROcodone/Acetaminophen 10/325 mg Tablet PO PRN (04:21)
[2017-11-23] MEDS: Piperacillin/Tazobactam 2.25 GM in Sodium Chloride 0.9% 100 ML IVPB SCH (05:29)
[2017-11-23] MEDS: Sodium Chloride 0.9% 1,000 ML IV SCH (05:29)
[2017-11-23] MEDS: Enoxaparin Sodium 40 MG/0.4 ML SYRINGE SC SCH (08:47)
[2017-11-23] MEDS: ENZALUTAMIDE 40 MG PO SCH (08:48)
[2017-11-23] MEDS: Gabapentin 100 MG CAP PO SCH (08:48)
--- NOTE | 2017-11-23 09:45 | DIS ---
DATE OF ADMISSION: 11/19/2017 DATE OF DISCHARGE: 11/23/2017 DIAGNOSES AT THE TIME OF DISCHARGE: 1. Aspiration pneumonia due to regurgitated food. 2. Hypercalcemia of malignancy. 3. Prostate cancer, metastatic to bones. 4. Chronic kidney disease. 5. Acute anemia. HOSPITAL COURSE: The patient was a 67-year-old -[place] male with history of metastatic pros rhodes cancer to multiple sites of the bone including the spine, cranium and ribs who was recently put on double dose of MS Contin to control his increased pain in his skeletal, which affected his mental condition. He had some vomiting. Although his mental condition was changed, he was brought to the e mergency room for further evaluation. He was given Narcan in the emergency department and his mental condition improved. At the time of ER evaluation, his creatinine was up to 2.69 and the baseline wa s around 1.3. Lactic acid was 3.2. White count up to 12.2, hemoglobin 8.6, MCV was 99.4 and platele t count was 600. Urinalysis was negative. Chest x-ray showed diffuse and extensive osseous metastat ic disease and airspace opacities compatible with possible bilateral pneumonia. The patient got admi tted to the hospital. He was tachypneic and febrile with some hypoxia and he was started on cefepime and Levaquin. Blood cultures were drawn, but later came back negative. He required 3 liters of O2 by nasal cannula and he received IV fluids. He showed some hypercalcemia with a calcium level at 12. 2, which gradually went down to 8.4. The patient was seen by Bee Echevarria APRN for a Oncology/hemat ology consultation. She recommended to continue IV fluids. He received renally adjusted dose of Zom eta and his [place] was discontinued. After his mental condition improved, his MS Contin was restarted in 15 mg twice a day dosing and he gradually got better to the point that the pain was controlled an d he was able to ambulate in the hallway with PT. He is doing well. PHYSICAL EXAMINATION: VITAL SIGNS: His blood pressure is 128/75, pulse is 100, temperature is 98.7, respiratory rate is 16 , and O2 saturation is 96% on room air. LUNGS: Showed few crackles at both bases. Occasional wheezes. CARDIOVASCULAR: S1, S2 normal, no S3, no S4. ABDOMEN: Soft and nontender. EXTREMITIES: No clubbing, cyanosis or edema. DISPOSITION: He is discharged home in significantly improved condition. His fiancee is going to [facility] care [facility] him at home. He will stay on a cardiac diet. ACTIVITY: As tolerated. MEDICATIONS At the time of discharge, enzalutamide 160 mg daily, gabapentin 200 mg twice a day, tams ulosin 0.4 mg at bedtime, morphine ER, MS Contin 15 mg twice a day, ibuprofen 800 mg q.8 hours p.r.n. , Augmentin 875/125 one tablet twice a day for 8 days, Flomax 0.4 mg at bedtime. DISCHARGE INSTRUCTIONS: He will have prescription for Augmentin and MS Contin and he will call Dr. Bob gutierrez's office to have followup appointment with him in the next few days. The patient was seen an d examined before he was discharged and discharge time is more than 30 minutes.
[2017-11-23 11:11] VITALS: BP 126/78; TEMP 97.8
[2017-11-23] MEDS: Morphine ER 15 MG TAB PO SCH (11:11)
== END 2017-11-23 11:50 | disposition home or self-care (01) | DRG 871 ==
LOC: ERS 01:40 → 2NO 04:12
PROVIDERS: ADMIT Internal Medicine; ATTEND Internal Medicine
DX: A41.9 Sepsis, unspecified organism (principal); J69.0 Pneumonitis due to inhalation of food and vomit; G93.41 Metabolic encephalopathy; C79.51 Secondary malignant neoplasm of bone; N17.9 Acute kidney failure, unspecified; C61 Malignant neoplasm of prostate; Z87.891 Personal history of nicotine dependence; Z88.8 Allergy status to other drugs, medicaments and biological substances; Z79.899 Other long term (current) drug therapy; Z79.891 Long term (current) use of opiate analgesic; E83.52 Hypercalcemia; T40.605A Adverse effect of unspecified narcotics, initial encounter; N18.9 Chronic kidney disease, unspecified; D64.9 Anemia, unspecified
CPT/HCPCS: 36415; 36430; 51701; 70450; 71045; 80048; 80053; 81003; 83605; 84439; 84443; 85025; 86850; 86900; 86901; 87040; 93005; 96361; 96365; 96375; A4216; G8978-GP-CK; G8979-GP-CJ; G8996-GN-CI; G8997-GN-CH; J0692; J1650; J1956; J2270; J2310; J2543; J3489; J7050; P9016

== ENCOUNTER 2017-12-14 06:57 | Emergency (ER) | payer MEDICARE, MEDICAID ==
[2017-12-14 10:37] LABS: #Eosinphils 0.1 thou/uL (0.0-0.7); #Lymphocytes 0.6 thou/uL (1.20-3.40); #Monocytes 0.6 thou/uL (0.11-0.59); #Neutrophils 8.1 thou/uL (1.40-6.50); %Eosinophils 1.4 % (0.0-10.0); %Lymphocytes 6.1 % (21.0-51.0); %Monocytes 6.6 % (0.0-10.0); %Neutrophils 85.9 % (42.0-75.0); Hemoglobin 7.8 g/dL (14.0-18.0); Mean Corpuscular Hemoglobin 31.2 pg (27.0-31.0); Mean Corpuscular Volume 97.6 fL (78.0-98.0); Mean Platelet Volume 5.3 fL (7.4-10.4); Platelet Count 420 thou/uL (130-400); RBC Distribution Width 15.5 % (11.5-14.5); Red Blood Cell (RBC) Count 2.49 mill/uL (4.70-6.10); White Blood Cell (WBC) Count 9.4 thou/uL (4.8-10.8)
[2017-12-14 11:02] LABS: ALT (SGPT) 8 U/L (8-55); AST (SGOT) 15 U/L (5-34); Albumin 3.4 g/dL (3.4-4.8); Alkaline Phosphatase 113 U/L (40-150); Anion Gap 16 mmol/L (10-20); BUN (Urea Nitrogen) 9 mg/dL (8.4-25.7); Bilirubin, Total 0.7 mg/dL (0.2-1.2); Calc. Creatinine Clearance 0 mL/min (70-130); Calcium 9.7 mg/dL (7.8-10.44); Carbon Dioxide 24 mmol/L (23-31); Chloride 99 mmol/L (98-107); Estimated GFR-MDRD Greater than 90; Globulin 3.2 g/dL (2.4-3.5); Glucose 109 mg/dL (80-115); Lipase 8 U/L (8-78); Potassium 4.2 mmol/L (3.5-5.1); Protein, Total 6.6 g/dL (5.8-8.1); Sodium 135 mmol/L (136-145)
[2017-12-14] MEDS ORDERED: Iopamidol 370 76% 50 ML VIAL FS ONE (12:13)
[2017-12-14] MEDS ORDERED: ISOVUE-370 76%-LOCM 1 ML ONE (12:13)
--- NOTE | 2017-12-14 14:18 | CT ---
CT ABDOMEN WITH CONTRAST CT PELVIS WITH CONTRAST: Date: 12/14/17 HISTORY: Constipation over 1 week. Pain. COMPARISON: 09/04/16. TECHNIQUE: An abdomen and pelvis CT are performed with IV and oral contrast. Coronal reformatted images are subm itted for interpretation. FINDINGS: Small bilateral pleural effusions. Normal cardiac silhouette. There is no pericardial fluid. The desc ending thoracic aorta and the abdominal aorta have an overall normal caliber. No periaortic fat stran ding. The portal vein is patent. Liver, spleen, pancreas, and adrenal glands are unremarkable. Symmetric en hancement of the kidneys. Bilaterally, no obstructive uropathy. No gastrohepatic, retrocrural, or periportal lymphadenopathy. No mesenteric mass, lymphadenopathy, free air, or free fluid. Symmetric attenuation of psoas muscles. Gastric mucosa is unremarkable. There is mild mucosal thickening involving the duodenum and multiple small bowel loops. Correlate for enteritis. No evidence of bowel obstruction. Ileocecal junction is n ormal. Normal caliber appendix. Scattered fecal material in a nondistended, nondilated colon. There is diffuse soft tissue edema. Correlate for anasarca. PELVIC CT: No mass, lymphadenopathy, free air, or free fluid. Urinary bladder is unremarkable. There is multifocal destructive and sclerotic metastasis. There are erosive and destructive changes i nvolving the sacrum with haziness of the presacral fat. This finding has developed since the previous exam. IMPRESSION: 1. Multifocal osseous metastasis. 2. No definite evidence of bowel obstruction. 3. Bilateral pleural effusions. 4. Normal caliber appendix. POS: [facility]
== END 2017-12-14 14:39 ==
LOC: ERS 06:57
DX: K59.00 Constipation, unspecified (principal); K52.9 Noninfective gastroenteritis and colitis, unspecified; Z87.891 Personal history of nicotine dependence
CPT/HCPCS: 36415; 74177; 80053; 83690; 85025; 96361; 96374; 96376; J2270

== ENCOUNTER 2017-12-18 11:47 | Day surgery (SDC) | payer MEDICARE, MEDICAID ==
[2017-12-18] MEDS ORDERED: diphenhydrAMINE 50 MG in Sodium Chloride 0.9% 50 ML IVPB SCH (12:30)
[2017-12-18] MEDS ORDERED: Dexamethasone 10 MG, Ondansetron 2MG/ML MDV 15 MG in Sodium Chloride 0.9% 50 ML IVPB SCH (12:30)
[2017-12-18] MEDS ORDERED: Famotidine/PF 20 MG in Sodium Chloride 0.9% 50 ML IVPB SCH (12:30)
[2017-12-18] MEDS ORDERED: predniSONE 5 MG TAB PO SCH (12:45)
[2017-12-18] MEDS ORDERED: [UNRECOGNIZED DRUG - OTHER] IVPB SCH (12:45)
[2017-12-18] MEDS ORDERED: SODIUM CHLORIDE 0.9% IVPB SCH (12:45)
[2017-12-18] MEDS ORDERED: Sodium Chloride 0.9% 30 ML ONE (13:09)
[2017-12-18 13:28] VITALS: BP 123/69; TEMP 97.4
== END 2017-12-18 15:29 | disposition home or self-care (01) ==
LOC: ONC/OP 11:47
PROVIDERS: ATTEND Internal Medicine Medical Oncology
DX: Z51.11 Encounter for antineoplastic chemotherapy (principal); C61 Malignant neoplasm of prostate; C79.51 Secondary malignant neoplasm of bone; E78.5 Hyperlipidemia, unspecified; R11.2 Nausea with vomiting, unspecified; Z87.891 Personal history of nicotine dependence; Z79.899 Other long term (current) drug therapy
CPT/HCPCS: 36415; 80053; 82248; 83615; 84100; 84153; 84550; 96375; 96413; A4216; J1100; J1200; J2405; J7050; J9043; S0028

== ENCOUNTER 2017-12-19 08:32 | Day surgery (SDC) | payer MEDICARE, MEDICAID ==
[2017-12-19] MEDS ORDERED: Acetaminophen 500 MG TAB PO SCH (09:00)
[2017-12-19] MEDS ORDERED: diphenhydrAMINE 25 MG CAP PO SCH (09:00)
[2017-12-19] MEDS ORDERED: Sodium Chloride 0.9% 40 ML ONE (10:12)
[2017-12-19 13:08] LABS: #Lymphocytes 0.5 thou/uL (1.20-3.40); #Monocytes 0.4 thou/uL (0.11-0.59); #Neutrophils 8.9 thou/uL (1.40-6.50); %Basophils 0.1 % (0.0-1.0); %Eosinophils 0.5 % (0.0-10.0); %Lymphocytes 4.9 % (21.0-51.0); %Neutrophils 90.5 % (42.0-75.0); Hemoglobin 8.4 g/dL (14.0-18.0); Mean Corpuscular HGB CONC 33.8 g/dL (32.0-36.0); Mean Corpuscular Hemoglobin 31.8 pg (27.0-31.0); Mean Corpuscular Volume 94.2 fL (78.0-98.0); Mean Platelet Volume 5.5 fL (7.4-10.4); Platelet Count 364 thou/uL (130-400); RBC Distribution Width 16.7 % (11.5-14.5); Red Blood Cell (RBC) Count 2.63 mill/uL (4.70-6.10); White Blood Cell (WBC) Count 9.8 thou/uL (4.8-10.8)
[2017-12-19 16:14] VITALS: BP 124/62; TEMP 99.1
== END 2017-12-19 16:05 | disposition home or self-care (01) ==
LOC: ONC/OP 08:32
PROVIDERS: ATTEND Internal Medicine Medical Oncology
DX: D64.9 Anemia, unspecified (principal); D69.6 Thrombocytopenia, unspecified
CPT/HCPCS: 36430; 85025; 86850; 86900; 86901; A4216; P9016

== ENCOUNTER 2018-01-08 11:46 | Day surgery (SDC) | payer MEDICARE, MEDICAID ==
[2018-01-08] MEDS ORDERED: diphenhydrAMINE 50 MG/ML VIAL IVP SCH (12:00)
[2018-01-08] MEDS ORDERED: Dexamethasone 10 MG/ML VIAL SLOW IVP SCH (12:00)
[2018-01-08] MEDS ORDERED: [UNRECOGNIZED DRUG - OTHER] IV SCH (12:00)
[2018-01-08] MEDS ORDERED: Famotidine/PF 20 mg/2ml Vial SLOW IVP SCH (12:00)
[2018-01-08] MEDS ORDERED: SODIUM CHLORIDE 0.9% IV SCH (12:00)
[2018-01-08] MEDS ORDERED: Ondansetron HCl/PF 4 MG/2 ML Vial SLOW IVP SCH (12:15)
[2018-01-08 12:19] VITALS: BP 119/72; TEMP 98
[2018-01-08] MEDS ORDERED: predniSONE 5 MG TAB PO SCH (21:00)
== END 2018-01-08 14:31 | disposition home or self-care (01) ==
LOC: ONC/OP 11:46
PROVIDERS: ATTEND Internal Medicine Medical Oncology
DX: Z51.11 Encounter for antineoplastic chemotherapy (principal); C61 Malignant neoplasm of prostate; C79.51 Secondary malignant neoplasm of bone; E78.5 Hyperlipidemia, unspecified; R31.29 Other microscopic hematuria; Z87.891 Personal history of nicotine dependence; Z79.899 Other long term (current) drug therapy
CPT/HCPCS: 36415; 80053; 82248; 83615; 84100; 84153; 84550; 96375; 96413; J7050; J9043; S0028

== ENCOUNTER 2018-01-11 06:37 | Emergency (ER) | payer MEDICARE, MEDICAID ==
[2018-01-11 07:22] LABS: #Lymphocytes 0.7 thou/uL (1.20-3.40); #Monocytes 0.1 thou/uL (0.11-0.59); #Neutrophils 8.8 thou/uL (1.40-6.50); %Eosinophils 0.4 % (0.0-10.0); %Lymphocytes 6.7 % (21.0-51.0); %Monocytes 1.4 % (0.0-10.0); %Neutrophils 91.5 % (42.0-75.0); Hemoglobin 8.9 g/dL (14.0-18.0); Mean Corpuscular HGB CONC 32.2 g/dL (32.0-36.0); Mean Corpuscular Hemoglobin 30.8 pg (27.0-31.0); Mean Corpuscular Volume 95.6 fL (78.0-98.0); Mean Platelet Volume 5.8 fL (7.4-10.4); Platelet Count 269 thou/uL (130-400); RBC Distribution Width 17.3 % (11.5-14.5); Red Blood Cell (RBC) Count 2.89 mill/uL (4.70-6.10); White Blood Cell (WBC) Count 9.6 thou/uL (4.8-10.8)
[2018-01-11 07:48] LABS: ALT (SGPT) Less than 7 U/L (8-55); AST (SGOT) 24 U/L (5-34); Albumin 3.9 g/dL (3.4-4.8); Alkaline Phosphatase 137 U/L (40-150); Anion Gap 17 mmol/L (10-20); BUN (Urea Nitrogen) 12 mg/dL (8.4-25.7); Bilirubin, Total 1.4 mg/dL (0.2-1.2); Calc. Creatinine Clearance 0 mL/min (70-130); Calcium 9.6 mg/dL (7.8-10.44); Carbon Dioxide 27 mmol/L (23-31); Chloride 95 mmol/L (98-107); Estimated GFR-MDRD Greater than 90; Globulin 3.1 g/dL (2.4-3.5); Glucose 143 mg/dL (80-115); Magnesium 1.9 mg/dL (1.6-2.6); Phosphorus 3.3 mg/dL (2.3-4.7); Potassium 3.8 mmol/L (3.5-5.1); Sodium 135 mmol/L (136-145)
[2018-01-11] MEDS ORDERED: Morphine 4 MG/ML VIAL ONE (08:01)
[2018-01-11 08:22] LABS: Bilirubin Negative (Negative); Blood, Urine Negative (Negative); Clarity CLEAR (Clear); Glucose, Urine (Dipstick) 100 mg/dL (Negative); Leukocyte Negative (Negative); Nitrite Negative (Negative); Protein, Urine (Dipstick) Trace mg/dL (Neg-Trace); Specific Gravity, Urine 1.008 (1.002-1.036)
--- NOTE | 2018-01-11 10:08 | CT ---
NONCONTRAST CT LUMBAR SPINE: Date: 01/11/18 HISTORY: Low back pain with onset 3 days prior to arrival. Prostate cancer. COMPARISON: CT abdomen and pelvis on 12/14/17, as well as CT lumbar spine on 10/29/15. TECHNIQUE: Contiguous axial CT images are obtained through the lumbar spine from T10-11 level to the upper sacru m. Sagittal and coronal reformatted images are provided. FINDINGS: Extensive and diffuse sclerotic osseous metastatic lesions are seen throughout the visualized lower t horacic and lumbar vertebral bodies, as well as involving the ribs, sacrum, and visualized iliac bone s. There is height loss involving the T11 vertebral body with pathological fracture and destructive c hanges involving the left lamina and pedicle of the T11 vertebral body. The pathological fracture ext ends through the vertebral body, as well as into the right pedicle. The remaining vertebral body heig hts of the lumbar spine are within normal limits. There are destructive changes involving the right iliac bone, which is a change from study in 2016, b ut was seen on the CT abdomen on 12/14/17. There is no evidence of a subluxation. Glottic lesions also involve the visualized lower ribs. There is narrowing of the central spinal canal at the T11-12 level on the transverse dimensions due t o the destructive changes involving the left pedicle with addition of soft tissue density in the lamar on of the destructive change, which narrows the central canal. There is also soft tissue density with in the left neural foramen at the T11-12 level, and extends into the neural foramen at the T10-11 lev el on the left, although this is incompletely imaged. This likely narrows the left neural foramen at the T10-11 level. Narrowing of the left neural foramen also present at the T11-12 level due to soft t issue density and destructive changes of the vertebral body. The right neural foramen at these levels appear patent. T12-L1 Level: There is no disc bulge or disc herniation. Central spinal canal and neural foramina are patent. L1-2 Level: No disc bulge or disc herniation. Central spinal canal and neural foramina are patent. L2-3 Level: There is loss of intervertebral disc height. There is a mild broad based disc osteophyte complex resu lting in slight effacement of the thecal sac. Neural foramina appear patent. L3-4 Level: There is loss of intervertebral disc height. There is a broad based disc osteophyte complex with mild facet degenerative changes. There is mild to moderate narrowing of the central spinal canal. There i s mild right and minimal left-sided neural foraminal narrowing. There are destructive changes involvi ng the superior articulating facet of the L4 vertebral body on the left. L4-5 Level: There is mild loss of intervertebral disc height. There is a broad based disc osteophyte complex and mild ligamentous thickening. There are mild facet degenerative changes. There is generalized mild doug rowing of the central spinal canal at this level. There is mild bilateral neural foraminal narrowing, greater on the left. L5-S1: There is mild disc osteophyte complex without significant narrowing of the central spinal canal. The neural foramina at this level do appear patent. Vascular calcifications seen in the abdominal aorta and involving the iliac arteries. Urinary bladder is distended. IMPRESSION: 1. Extensive sclerotic osseous metastatic disease. 2. Pathological fracture involving the T11 vertebral body with height loss, as well as destructive c hanges involving the left pedicle and extending into the lamina of the T11 vertebral body with associ ated soft tissue density/mass which extends into the neural foramen and results in foraminal narrowin g on the left at the T10-11 and T11-12 levels. 3. Osseous destructive changes involving portions of the right iliac bone, as well as the lower sacr um, with soft tissue density also seen anterior to the lower portion of the sacrum. Above findings discussed with Dr. Elizondo in the emergency department on 01/11/18 at 0824 hours. CODE CR. POS: [facility]
== END 2018-01-11 09:52 | disposition home or self-care (01) ==
LOC: ERS 06:37
DX: M54.5 Low back pain (principal); C61 Malignant neoplasm of prostate; Z79.899 Other long term (current) drug therapy; Z87.891 Personal history of nicotine dependence
CPT/HCPCS: 72131; 80053; 81003; 83735; 84100; 85025; 96374; J2270

== ENCOUNTER 2018-01-16 08:53 | Day surgery (SDC) | payer MEDICARE, MEDICAID ==
[2018-01-16] MEDS ORDERED: diphenhydrAMINE 25 MG CAP PO SCH (09:15)
[2018-01-16] MEDS ORDERED: Acetaminophen 500 MG TAB PO SCH (09:15)
[2018-01-16 15:08] VITALS: BP 105/59; TEMP 98.1
[2018-01-16 15:08] LABS: Hemoglobin 8.9 g/dL (14.0-18.0)
== END 2018-01-16 15:09 | disposition home or self-care (01) ==
LOC: ONC/OP 08:53
PROVIDERS: ATTEND Internal Medicine Hematology & Oncology
DX: D64.9 Anemia, unspecified (principal); D69.6 Thrombocytopenia, unspecified; Z88.8 Allergy status to other drugs, medicaments and biological substances
CPT/HCPCS: 36415; 36430; 85014; 85018; 86850; 86900; 86901; P9016

== ENCOUNTER 2018-01-29 11:45 | Day surgery (SDC) | payer MEDICARE, MEDICAID ==
[2018-01-29] MEDS ORDERED: Famotidine/PF 20 MG in Sodium Chloride 0.9% 50 ML IVPB SCH (12:30)
[2018-01-29] MEDS ORDERED: [UNRECOGNIZED DRUG - OTHER] IV SCH (12:30)
[2018-01-29] MEDS ORDERED: Dexamethasone 10 MG, Ondansetron 2MG/ML MDV 15 MG in Sodium Chloride 0.9% 50 ML IVPB SCH (12:30)
[2018-01-29] MEDS ORDERED: SODIUM CHLORIDE 0.9% IV SCH (12:30)
[2018-01-29] MEDS ORDERED: Zoledronic Acid 4 MG in Sodium Chloride 0.9% 100 ML IVPB SCH (12:30)
[2018-01-29] MEDS: diphenhydrAMINE 50 MG in Sodium Chloride 0.9% 50 ML IVPB SCH ×2 (13:39→13:40)
[2018-01-29 17:10] VITALS: BP 101/64; TEMP 98.9
[2018-01-29] MEDS ORDERED: predniSONE 5 MG TAB PO SCH (21:00)
== END 2018-01-29 17:16 | disposition home or self-care (01) ==
LOC: ONC/OP 11:45
PROVIDERS: ATTEND Internal Medicine Medical Oncology
DX: Z51.11 Encounter for antineoplastic chemotherapy (principal); C61 Malignant neoplasm of prostate; E78.5 Hyperlipidemia, unspecified; Z79.899 Other long term (current) drug therapy; Z88.8 Allergy status to other drugs, medicaments and biological substances
CPT/HCPCS: 36415; 80053; 82248; 83615; 84100; 84153; 84550; 96367; 96375; 96413; J1100; J1200; J2405; J3489; J7050; J9043; S0028

== ENCOUNTER 2018-02-07 10:42 | Day surgery (SDC) | payer MEDICARE, MEDICAID ==
[2018-02-07] MEDS ORDERED: Acetaminophen 500 MG TAB PO SCH (12:15)
[2018-02-07] MEDS ORDERED: diphenhydrAMINE 25 MG CAP PO SCH (12:15)
[2018-02-07 15:40] LABS: Hemoglobin 7.9 g/dL (14.0-18.0)
[2018-02-07 17:35] VITALS: BP 104/66; TEMP 98.1
== END 2018-02-07 17:49 | disposition home or self-care (01) ==
LOC: ONC/OP 10:42
PROVIDERS: ATTEND Internal Medicine Medical Oncology
DX: D64.9 Anemia, unspecified (principal); D69.6 Thrombocytopenia, unspecified
CPT/HCPCS: 36430; 85014; 85018; 86850; 86900; 86901; P9016

== ENCOUNTER 2018-02-20 00:31 | Observation (INO) | payer MEDICARE, MEDICAID ==
[2018-02-20] MEDS ORDERED: Fentanyl 100 MCG/2 ML VIAL ONE (01:34)
[2018-02-20] MEDS ORDERED: Ketorolac Tromethamine 30 MG/ML VIAL ONE (01:34)
[2018-02-20] MEDS ORDERED: Lorazepam 2 MG/ML VIAL ONE (01:34)
[2018-02-20 02:20] LABS: Hemoglobin 9.1 g/dL (14.0-18.0); Mean Corpuscular HGB CONC 31.4 g/dL (32.0-36.0); Mean Corpuscular Hemoglobin 30.7 pg (27.0-31.0); Mean Corpuscular Volume 97.8 fL (78.0-98.0); Mean Platelet Volume 6.3 fL (7.4-10.4); Platelet Count 276 thou/uL (130-400); RBC Distribution Width 17.6 % (11.5-14.5); Red Blood Cell (RBC) Count 2.95 mill/uL (4.70-6.10)
[2018-02-20 02:23] LABS: Anion Gap 16 mmol/L (10-20); BUN (Urea Nitrogen) 13 mg/dL (8.4-25.7); CK (CPK) 118 U/L (30-200); Calc. Creatinine Clearance 0 mL/min (70-130); Calcium 9.4 mg/dL (7.8-10.44); Carbon Dioxide 24 mmol/L (23-31); Chloride 98 mmol/L (98-107); Estimated GFR-MDRD Greater than 90; Glucose 131 mg/dL (80-115); Potassium 4.4 mmol/L (3.5-5.1); Sodium 134 mmol/L (136-145)
[2018-02-20 02:40] LABS: Band 20 % (5-11); Lymphocytes 7 % (21-51); MDiff Complete? YES; Metamyelocyte 2 % (0-0); Monocytes 7 % (0-10); Myelocyte 3 % (0-0); Neutrophil 61 % (42-75); Nucleated RBC 2 % (0); White Blood Cell (WBC) Count 14.2 thou/uL (4.8-10.8)
[2018-02-20 03:16] LABS: Lactic Acid 1.5 mmol/L (0.5-2.2)
[2018-02-20] MEDS ORDERED: Piperacillin/Tazobactam 4.5 GM VIAL ONE (03:35)
[2018-02-20] MEDS ORDERED: Acetaminophen 325 MG TAB PO PRN ×2 (06:03→12:05)
[2018-02-20] MEDS ORDERED: Ondansetron HCl/PF 4 MG/2 ML Vial IVP PRN ×2 (06:03→12:05)
[2018-02-20] MEDS ORDERED: Ondansetron ODT 4 MG TAB SL PRN (06:03)
[2018-02-20 06:10] VITALS: BMI 24.5
[2018-02-20] MEDS ORDERED: Morphine 4 MG/ML VIAL SLOW IVP PRN (06:11)
[2018-02-20] MEDS ORDERED: Sodium Chloride 0.9% 1,000 ML IV SCH (06:15)
[2018-02-20] MEDS ORDERED: Vancomycin HCl 1.25 GM in Sodium Chloride 0.9% 250 ML 250 ML IVPB SCH (06:30)
[2018-02-20] MEDS: Ketorolac Tromethamine 30 MG/ML VIAL IVP SCH ×2 (08:45→14:36)
[2018-02-20] MEDS ORDERED: Piperacillin/Tazobactam 4.5 GM in Sodium Chloride 0.9% 100 ML IVPB SCH (10:00)
[2018-02-20] MEDS ORDERED: Famotidine/PF 20 mg/2ml Vial SLOW IVP PRN (12:05)
[2018-02-20] MEDS ORDERED: hydrALAZINE 20 MG/ML VIAL SLOW IVP PRN (12:05)
[2018-02-20] MEDS ORDERED: Acetaminophen 650 MG Suppository PR PRN (12:05)
[2018-02-20] MEDS ORDERED: Ondansetron ODT 4 MG TAB PO PRN (12:05)
--- NOTE | 2018-02-20 14:01 | MRI ---
MRI LUMBAR SPINE WITHOUT CONTRAST: INDICATIONS: History of prostate metastatic disease with low back pain. Concern for possible epidural abscess. COMPARISON: CT lumbar spine, dated 01/11/2018. TECHNIQUE: Multiplanar, multisequence MR images were obtained of the lumbar spine without IV contrast. Motion a rtifact highly limits image detail. FINDINGS: As seen on the comparison CT, there is diffuse osseous metastatic disease. There is a pathologic fra cture involving T11 that was seen on the comparison CT examination. Loss of height appears similar a ppearing. There is extensive disease involving the pedicles to T11 bilaterally, likely with extraoss eous mass extension. There is some narrowing of the central canal, at the T11 level, that is poorly detailed on the current exam. There is mildly prominent epidural lipomatosis of the lumbar spine. No definite large extraaxial col lection is noted outside the epidural lipomatosis. No new acute pathologic fracture seen involving the lumbar spine. The conus is seen to terminate at approximately L1. At the L5-S1 level, there is a mild broad-based bulge with mild facet joint degenerative changes due to mild bilateral neural foraminal narrowing. At the L4-L5 level, there is a mild broad-based bulge with epidural lipomatosis, inducing mild centra l canal narrowing. The broad-based bulge induces mild left neural foraminal narrowing. At the L3-L4 level, there is a broad-based bulge with facet hypertrophy, inducing mild bilateral neur al foraminal narrowing. At the L2-L3 level, there is a broad-based bulge with facet hypertrophy, inducing mild bilateral neur al foraminal narrowing. At the L1-L2 level, there is no appreciable central canal or neural foraminal narrowing. At the T12-L1 level, there is no appreciable central canal or neural foraminal narrowing. There is prominent edema within the lower lumbar paraspinal musculature, which may reflect sequela of anasarca or myositis. This could also be related to muscular strain. IMPRESSION: 1. Pathologic fracture involving T11 with suspicion for extraosseous mass extension into the spinal canal, with likely some cord compression. 2. Diffuse osseous metastatic disease. 3. Mild central canal narrowing at L4-L5 due to broad-based disk bulge and epidural lipomatosis. Th is appears similar to an MRI of the lumbar spine dated 10/20/2015. 4. Nonspecific paraspinal muscular edema can be related to muscular strain or myositis. POS: [facility]
--- NOTE | 2018-02-20 14:12 | MRI ---
MRI CERVICAL SPINE WITHOUT CONTRAST: HISTORY: Evaluate for epidural abscess. History of prostate cancer with metastases. Pain. Evaluate for SIRS versus epidural abscess. TECHNIQUE: A noncontrast cervical spine MRI is performed. FINDINGS: There are patchy areas of T1 hypointensity, some of which have associated STIR hyperintensity. Addit ional areas of STIR hyperintensities without corresponding T1 marrow signal hypointensity is suggeste d. Findings likely represent a combination of sclerotic and nonsclerotic metastatic lesions. There is evidence of diffuse osseous involvement throughout the vertebral bodies, as well as the posterior elements. The visualized brain parenchyma, cervicomedullary junction, cervical cord, and upper thoracic cord meneses ve an overall normal size and signal intensity. On the sagittal STIR sequence, there is no evidence of abnormal signal intensity in the anterior epid ural space or in the prevertebral soft tissues. Partial opacification of the left mastoid air cells. Axial T2 weight images do not demonstrate any obvious prevertebral fluid. C2-C3: No high-grade central canal stenosis or high-grade foraminal narrowing. C3-C4: Broad-based disk osteophyte complex. Mild central canal stenosis. Moderate bilateral forami nal narrowing. C4-C5: Broad-based disk osteophyte complex with mild central canal stenosis. Mild bilateral foramin al narrowing. C5-C6: Broad-based disk osteophyte complex abuts the thecal sac. Ventral CSF signal intensity is ef faced, and there is mild abutment of the ventral cord. Mild central canal stenosis. Moderate bilate ral foraminal narrowing. C6-C7: No significant disk osteophyte complex. No significant central canal stenosis. The right ne ural foramen is patent. Moderate left foraminal narrowing. C7-T1: No significant disk osteophyte complex. No significant central canal stenosis. Moderate rig ht and at least mild to moderate left foraminal narrowing. IMPRESSION: 1. No evidence of an epidural abscess. Extensive oseous metastases. 2. Varying degrees of central canal stenosis and foraminal narrowing, as above. 3. Multifocal osseous metastatic deposits without evidence of an acute pathologic fracture. POS: [facility]
--- NOTE | 2018-02-20 14:40 | MRI ---
MRI THORACIC SPINE WITHOUT CONTRAST: HISTORY: Evaluate for epidural abscess. Osseous metastases secondary to prostate cancer. COMPARISON: None. TECHNIQUE: A noncontrast thoracic spine MRI is performed. Multisequential, multiplanar imaging is performed. FINDINGS: There are extensive multifocal osseous metastases. STIR images demonstrate associated edema. Mild p athologic fracture at the T11 level is noted. The overall amount of edema is similar to other verteb ral bodies, suggesting metastases, with a slightly remote pathologic fracture. On the STIR images, there is no evidence of an abnormal fluid collection in the epidural space. The thoracic cord appears to have an overall normal size and signal intensity. There is severe compr omise of the central canal at T11, likely due to pathologic fracture, as well as involvement of the a nterior and posterior spinal column, secondary to metastases. Evaluation of the thoracic spine is limited by motion degradation IMPRESSION: 1. No evidence of an epidural abscess. 2. Severe central spinal canal compromise at T11. Consider consultation with radiation oncology. POS: [facility]
[2018-02-20] MEDS: Morphine ER 15 MG TAB PO SCH ×2 (17:03→21:12)
[2018-02-20] MEDS: HYDROcodone/Acetaminophen 10/325 mg Tablet PO PRN ×2 (19:22→23:15)
[2018-02-20] MEDS: Gabapentin 100 MG CAP PO SCH (21:11)
[2018-02-20] MEDS: Tamsulosin HCl 0.4 MG CAP PO SCH (21:12)
[2018-02-21 06:24] LABS: Anion Gap 12 mmol/L (10-20); BUN (Urea Nitrogen) 13 mg/dL (8.4-25.7); Calc. Creatinine Clearance 128 mL/min (70-130); Calcium 8.5 mg/dL (7.8-10.44); Carbon Dioxide 25 mmol/L (23-31); Chloride 101 mmol/L (98-107); Estimated GFR-MDRD Greater than 90; Glucose 71 mg/dL (80-115); Potassium 4.3 mmol/L (3.5-5.1); Sodium 134 mmol/L (136-145)
[2018-02-21 06:59] LABS: Band 2 % (5-11); Hemoglobin 8.3 g/dL (14.0-18.0); Hypochromia SLIGHT = 6-15 cells (100X) (0-5/hpf); Lymphocytes 11 % (21-51); MDiff Complete? YES; Mean Corpuscular HGB CONC 31.7 g/dL (32.0-36.0); Mean Corpuscular Hemoglobin 31.2 pg (27.0-31.0); Mean Corpuscular Volume 98.6 fL (78.0-98.0); Mean Platelet Volume 6.7 fL (7.4-10.4); Metamyelocyte 1 % (0-0); Monocytes 6 % (0-10); Myelocyte 1 % (0-0); Neutrophil 79 % (42-75); Nucleated RBC 4 % (0); PLT Morphology Comment Appears Adequate; Platelet Count 215 thou/uL (130-400); Polychromasia SLIGHT = 2-3 cells (100X) (0-2/hpf); RBC Distribution Width 17.7 % (11.5-14.5); Red Blood Cell (RBC) Count 2.66 mill/uL (4.70-6.10); White Blood Cell (WBC) Count 11.6 thou/uL (4.8-10.8)
[2018-02-21] MEDS: Gabapentin 100 MG CAP PO SCH ×2 (08:29→21:18)
[2018-02-21] MEDS: Morphine ER 15 MG TAB PO SCH ×3 (08:30→21:18)
[2018-02-21] MEDS: predniSONE 5 MG TAB PO SCH (08:31)
[2018-02-21] MEDS: Multivit, Therapeutic 1 TAB PO SCH (08:31)
--- NOTE | 2018-02-21 09:43 | PRG ---
DATE OF SERVICE: 02/21/2018 This is a 30 minute initial hospital visit note in which 30 minutes were spent in review the imaging, record, evaluation, examination of the patient, and formulation of plan. Greater than 50% of the ti me was spent counseling on Noé Jose. CHIEF COMPLAINT: Widespread metastatic prostate cancer with pathologic fracture T11 and canal stenos is. HISTORY OF PRESENT ILLNESS: Mr. Jose is a 67-year-old man that is known to me. I did see him in t he past for the aforementioned. He has now developed a T11 fracture that is made ambulation without axial spinal pain difficult. Review of cervical, thoracic, and lumbar MRI demonstrates widespread es sentially every vertebral level involved with metastatic prostate cancer. At T11 there is a patholog ic fracture with canal stenosis. There is no signal abnormality in the cord, but certainly would exp is[place] the patient's pain. PHYSICAL EXAMINATION: GENERAL: He is alert, appropriate. He moves all extremities to command. I suspect he has some form of myelopathic weakness, although he appears to have good strength throughout, his main issue is jose n. IMPRESSION AND PLAN: We will arrange for TLSO brace. I would not recommend any surgical interventio n here. He tried external beam radiation therapy, but he states that it increased his fatigue. This would be the only recommendation along with steroids that I would provide as any decompression would require stabilization here. The problem with stabilization is the screw amarjit construct would reside in bone that is already ridden with the prostate cancer and as such the purchase of the screws would be suspect at best. I have let the patient know we will provide a brace. The duration of the brace essentially would be lifelong or until the patient prefers not to wear it anymore. It will provide s ome form of support along with analgesics that would help with pain. I would recommend wearing the b race when he is out of bed. DIAGNOSES: T11 pathologic fracture with widespread metastatic prostate adenocarcinoma.
[2018-02-21] MEDS: HYDROcodone/Acetaminophen 10/325 mg Tablet PO PRN ×2 (10:16→14:11)
--- NOTE | 2018-02-21 12:49 | CON ---
DATE OF CONSULTATION: 02/21/2018 REASON FOR CONSULTATION: Metastatic prostate cancer. HISTORY OF PRESENT ILLNESS: A 67-year-old male with metastatic prostate cancer on cabazitaxel presenting with severe back pain to the hospital. The patient has had worsening back pain and worsening lower extremity weakness recently. He has a known T11 pathologic fracture. Most recently seen on a CT dated 01/11/2018. MRI of the spine this admission again shows pathologic fracture involving T11, loss of height appearing similar. There is extensive disease involving the pedicles to T11 bilaterally, likely with extraosseous mass extension. There is some narrowing of the central canal at T11 level, however, it is poorly detailed on the current exam. The patient was seen by Dr. Leary, who is arranging the patient for a TLSO brace. He does not believe surgery is an option for this patient given extensive osseous metastases. The patient currently states that his pain has improved and is being well managed in the hospital. He has limited mobility, which he states is mostly due to the pain and partially due to lower extremity weakness. He denies any upper extremity weakness, bowel or urinary incontinence or any numbness. He otherwise feels well. The patient initially presented with metastatic prostate cancer in 08/2015 and was started on Casodex and Lupron at that time. Since then, he has also been on Zytiga and Xtandi along with Taxotere. He received radium for a time and has had external radiation 3 separate times for his spine, pelvis and right leg. He is currently on Jevtana IV for his prostate cancer and is due for this today. He is currently tolerating treatment well with minimal side effects. REVIEW OF SYSTEMS: A 10-point review of systems negative except as per HPI. PAST MEDICAL HISTORY: Prostate cancer metastatic to bone, chronic kidney disease, anemia, hypertension. SOCIAL HISTORY: . Former smoker. Social alcohol. ALLERGIES: No known drug allergies. MEDICATIONS: Reviewed. PHYSICAL EXAMINATION: VITAL SIGNS: Temperature 98.5, pulse 114, respirations 16, oxygen saturation 94 % on room air, blood pressure 136/78. GENERAL: The patient is lying in bed, in no acute distress, playing games on his cell phone. CARDIOVASCULAR: Normal S1, S2. Regular rate and rhythm. No murmurs, rubs or gallops. RESPIRATIONS: Clear to auscultation bilaterally without wheezes, rales or rhonchi. ABDOMEN: Soft, nondistended, nontender. EXTREMITIES: No edema. MUSCULOSKELETAL: No spinal tenderness to palpation. NEUROLOGIC: Distal lower extremity weakness, 5/5 bilaterally, proximal lower extremity strength 2-3/5. The patient is unable to lift extremities against resistance. LABORATORY DATA: White blood cells 11.6, hemoglobin 8.3, hematocrit 26.2, platelets 215,000. IMAGING DATA: Thoracic spine MRI dated 02/20/2018, no evidence of an epidural abscess. Severe central spinal canal compromise at T11. Lumbar spine MRI, pathologic fracture involving T11 with suspicion for extraosseous mass extension into the spinal canal with likely some cord compression. Diffuse osseous metastatic disease, mild central canal narrowing at L4-L5 due to broad- based disk bulge and epidural lipomatosis. This appears similar to an MRI of the lumbar spine dated 10/20/2015. Nonspecific paraspinal muscular edema can be related to muscular strain or myositis. Cervical spine MRI, no evidence of an epidural abscess, extensive osseous metastases, varying degrees of central canal stenosis and foraminal narrowing of the above. Multifocal osseous metastatic deposits without evidence of an acute pathologic fracture. ASSESSMENT AND PLAN: A 67-year-old male with metastatic prostate cancer to the bone, presenting with severe back pain, lower extremity weakness and difficulty with ambulation. The patient has a known T11 pathologic fracture with central canal stenosis and the possibility of some cord compression that may be causing his lower extremity weakness and is most likely the source of his pain. His distal lower extremity strength is intact. The patient's pain has improved since admission to the hospital and is being well managed as per the patient. He was seen by Dr. Leary and a TLSO brace has been ordered and the patient should receive this today. He is currently observation status and may be discharged home once he receives the brace. Surgery is likely not an option for this patient due to extensive osseous metastatic disease of the bones. Dr. Patel is going to do spot XRT to this lesion starting today. The patient is due for cabazitaxel today as well, however , we will do this at a later date as we don't want to give concurrently with XRT. The patient can follow up with Dr. Irby as an outpatient. Thank you for this consult. JAMIE
[2018-02-21] MEDS ORDERED: Dexamethasone 4 mg/ml Vial SLOW IVP SCH (13:45)
[2018-02-21] MEDS: Dexamethasone 4 MG TAB PO SCH ×2 (17:54→21:18)
[2018-02-21] MEDS: Tamsulosin HCl 0.4 MG CAP PO SCH (21:19)
--- NOTE | 2018-02-21 23:26 | CON ---
DATE OF CONSULTATION: 02/21/2018 REASON FOR CONSULTATION: Mr. Jose is a 67-year-old gentleman with diffuse metastatic adenocarcinom a of the prostate, who has a spinal cord compression. HISTORY OF PRESENT ILLNESS: Mr. Jose is well known to me. He is a 67-year-old gentleman, who pres ented with diffuse metastatic prostate cancer at diagnosis. This was a stage IV, [id number] lesion. Bi opsy showed Aroldo's 4+4 adenocarcinoma. He was started on Lupron and then was treated with Taxoter e. His pain has much improved. I have treated him several times through the past several years. Mo re recently had treated the spine from T6-T10 for an asymptomatic cord compression. This is a 30 Gy in 10 fractions and was completed on 06/07/2017. I have also treated the right hip and proximal femu r as well as the distal right femur. Dose received 800 cGy in 1 fraction. He has basically progress ed through every therapy and has castrate resistant disease. He has failed Zytiga and more recently was on eversion of Taxotere. This was last given 3 weeks ago. He presented with progressive back pa in in the mid back area. In the last day or so, the pain has become more extensive and he had weakne ss. He subsequently was admitted to the hospital for workup and evaluation. An MRI of the thoracic and lumbar spine was performed. This showed diffuse metastatic disease, but at the T11 vertebral bod y had a compression fracture with a significant canal stenosis and spinal cord compression. He has b een seen by Neurosurgery, who did not feel that he was a good candidate for decompression. He had al so been seen by Medical Oncology. Dr. Irby asked me to see the patient for consideration of radi ation therapy. Primarily his complaint is of back pain and weakness in his legs. He has difficulty with standing. Neurosurgery has recommended a brace for his spine. He has chronic constipation from his pain medication. He has no difficulty with urination and denies any numbness in the legs. He h as no other areas of pain at the present time. He has no difficulty with eating or swallowing. He v oices no other complaints. PAST MEDICAL HISTORY: 1. Prostate cancer as mentioned above. 2. Hypercholesterolemia. 3. Chronic renal insufficiency. 4. Hypertension. MEDICATIONS: Dexamethasone, Pepcid, Neurontin, hydrocodone, Protonix, and Flomax. ALLERGIES: BACITRACIN, NEOMYCIN, and POLYMYXIN B. SOCIAL HISTORY: He previously smoked up to 2 packs per day, but has not smoked for quite some time. He has no alcohol use at the present time. He lives with his significant other here in town. He is retired. FAMILY HISTORY: Negative for prostate cancer. Positive for high blood pressure and diabetes in his family. There is no other family history of malignancy. REVIEW OF SYSTEMS: A 12-system review of systems otherwise negative. PHYSICAL EXAMINATION: VITAL SIGNS: Height 6 feet, weight 180 pounds, blood pressure is 136/78, pulse is 114, respirations are 16, temperature 98.5, and O2 saturation is 94%. GENERAL: He is alert and oriented and in no apparent distress. He is well-developed and well-nouris hed. Karnofsky performance status is 50%. EYES: Pupils equal, round, react to light. Extraocular movements are intact. ENT: Oral cavity and oropharynx normal without lesion or erythema. Palate elevates symmetrically. Gingiva is intact. NECK: Supple, without cervical or supraclavicular adenopathy. No thyromegaly. Larynx is midline. LUNGS: Breathing nonlabored. Clear to auscultation and percussion. HEART: Regular rate and rhythm without murmur. EXTREMITIES: Chronic bilateral lower extremity edema. BACK: Reveals the subjective area of tenderness to be in about the T11 area. LYMPHATIC: No axillary or inguinal adenopathy. ABDOMEN: Soft, nontender, nondistended, without mass or hepatosplenomegaly. Liver percusses to norm al size. SKIN: Without rash or purpura. NEUROLOGIC: Cranial nerves II-XII grossly intact. Motor strength is 5/5 in both upper extremities i n all muscle groups tested. In the lower extremities, his legs are weaker with both hip flexors grad ed a 4/5. He is able to lift them off the bed and offer some resistance, but they are easily able to be broken. Distally he has plantar flexion and dorsiflexion appear intact. LABORATORY DATA: CBC revealed a white blood count 11,600 with hemoglobin of 8.3, hematocrit of 26.2, platelet count 215,000. Chemistry group showed fairly normal electrolytes. Creatinine was normal a t 0.65. RADIOLOGIC: MRI of the thoracic and lumbar spine were both personally reviewed. Again, this shows d iffuse metastatic disease with compression fracture at T11 and spinal cord compression at the T11 grayson tebral body. ASSESSMENT: Mr. Jose is a 67-year-old gentleman with advanced castrate-resistant metastatic prosta te cancer, who now has spinal cord compression at the T11 vertebral body. I think neurologically he does have symptoms with some leg weakness. PLAN: I had a long discussion with Mr. Jose and his significant other regarding his diagnosis, pro gnosis, prognostic factors, and treatment options. He has previously received radiation therapy from the T6-T10 vertebral bodies. Thus to give him radiation therapy with overlap into his previously tr eated area to adequately treat the T11 vertebral body. The difficulty is a really are not other opti ons. He has been seen by Dr. Leary in Neurosurgery, did not think he is a good candidate for surgic al decompression. He felt it would be hard to decompress and stabilize his spine given his diffuse m etastatic disease. Also, his prognosis is somewhat limited. I think he is best managed with steroid s as being given. I also think we should emergently start him on radiation therapy to the thoracic s pine region. This will overlap some into his previously treated area, but I think the risk of overla p will be quite small. I explained to Mr. Jose and significant other that he will likely be paraly zed without any treatment. Hopes that we can prevent paralysis and improve his pain with radiation t herapy. I explained there would be some increased risk because of overlap, but likely the risk would still be small of him developing myelopathy from the radiation. The logistics of radiation as well as the benefits and risks of treatment were discussed. The simulation procedure was discussed in dep th. Side effects would include but not be limited to skin reaction, fatigue, lower blood counts, dif ficulty or burning with swallowing, nausea, vomiting, and risk of damage to any structure, which rece wilbur radiation therapy including risk of myelopathy from overlap of his radiation. Time was taken to answer all their questions regarding the treatment options. He is agreeable to proceed with radiati on therapy as recommended to him. Arrangements will be made for him to emergently start radiation th erapy today.
[2018-02-22] MEDS: HYDROcodone/Acetaminophen 10/325 mg Tablet PO PRN (00:06)
[2018-02-22] MEDS: predniSONE 5 MG TAB PO SCH (07:30)
[2018-02-22] MEDS: Gabapentin 100 MG CAP PO SCH (07:30)
[2018-02-22] MEDS: Dexamethasone 4 MG TAB PO SCH (07:30)
[2018-02-22] MEDS: Multivit, Therapeutic 1 TAB PO SCH (07:31)
[2018-02-22] MEDS: Morphine ER 15 MG TAB PO SCH (07:31)
[2018-02-22 07:35] VITALS: BP 126/86
[2018-02-22 08:09] VITALS: TEMP 97.8
--- NOTE | 2018-02-22 09:23 | PDOC.PN ---
- Subjective Encounter Start Date: 02/21/18 Encounter Start Time: 09:00 follow up for back pain. better control of pain, on home meds, no IV breakthrough needed. MRI done, diffuse mets present, NSG has seen, no surgical intervention, recommended TLSO brace, steroids, radiation. No f/C, no N/V/d/c, HR down with pain control All systems reviewed and neg x as above - Objective MAR Reviewed: Yes Vital Signs & Weight: Vital Signs (12 hours) Temp Pulse Resp BP Pulse Ox 02/22/18 07:33 97.8 F 98 16 126/86 97 02/22/18 03:33 97.6 F 100 18 133/79 97 02/21/18 23:35 97.7 F 104 H 16 154/88 H 98 Weight Weight 180 lb 9 oz I&O: 02/21/18 02/22/18 02/23/18 06:59 06:59 06:59 Intake Total 2210 1220 Output Total 729 700 Balance 1481 520 Result Diagrams: 02/21/18 05:10 02/21/18 05:10 Radiology Reviewed by me: Yes EKG Reviewed by me: Yes Phys Exam - Physical Examination Constitutional: NAD HEENT: PERRLA, moist MMs, sclera anicteric, oral pharynx no lesions Neck: no nodes, no JVD, supple, full ROM Respiratory: no wheezing, no rales, no rhonchi, clear to auscultation bilateral Cardiovascular: RRR, no significant murmur, no rub Gastrointestinal: soft, non-tender, no distention, positive bowel sounds Musculoskeletal: edema present Neurological: non-focal, normal sensation, moves all 4 limbs Lymphatic: no nodes Psychiatric: normal affect, A&O x 3 Skin: no rash, normal turgor, cap refill <2 seconds Dx/Plan (1) BPH (benign prostatic hyperplasia) Code(s): N40.0 - BENIGN PROSTATIC HYPERPLASIA WITHOUT LOWER URINRY TRACT SYMP Status: Chronic Qualifiers: Lower urinary tract symptom presence: symptoms absent Qualified Code(s): N40.0 - Benign prostatic hyperplasia without lower urinary tract symptoms (2) Hypercalcemia of malignancy Code(s): E83.52 - HYPERCALCEMIA Status: Chronic (3) Prostate cancer metastatic to bone Code(s): C61 - MALIGNANT NEOPLASM OF PROSTATE; C79.51 - SECONDARY MALIGNANT NEOPLASM OF BONE Status: Chronic - Plan cont current plan of care, PT/OT * .
--- NOTE | 2018-02-22 09:44 | DIS ---
PRIMARY CARE PHYSICIAN: Jin Pollard M.D. PRIMARY ONCOLOGIST: Dr. Irby. CONSULTATIONS: 1. Neurosurgery, Dr. Earl Leary. 2. Oncology, Dr. Rene. 3. Radiation Oncology, Dr. David Patel. PROCEDURES: 1. An MRI screen of the spine. 2. External beam radiation therapy x1 on 02/21/2018. HISTORY AND PHYSICAL: Mr. Jose is a 67-year-old male with metastatic prostate cancer on ch emotherapy who presented for intractable back pain. We were called for admit. HOSPITAL COURSE: The patient was seen and examined by me on arrival to the floor. Patient's pain wa s under fair control at that point. He underwent MRI of the C, T and L-spine that showed diffuse met astatic disease. Neurosurgery was consulted and felt no surgical intervention was possible. He was put in a TLSO brace once available and underwent external beam radiation therapy. He did well overnight and today on 02/22/2018 he was discharged to home, so we go to chemotherapy. PHYSICAL EXAMINATION: The patient was seen on the day of discharge. Discharge plan and disposition were discussed with the patient [id number] at the bedside. DISCHARGE MEDICATIONS: 1. Gabapentin 200 mg p.o. b.i.d. 2. [place] 10/325 two p.o. q.4 hours p.r.n. 3. MS Contin 50 mg p.o. t.i.d. 4. Multivitamin daily. 5. Prednisone 10 mg daily. 6. Flomax 0.4 mg p.o. at bedtime. FOLLOWUP APPOINTMENTS: 1. Outpatient chemotherapy infusion today. 2. Primary care physician in [address] Irby as scheduled. 4. Dr. Earl Leary per his clinic. DISCHARGE CONDITION: Poor prognosis. DISCHARGE DISPOSITION: The patient was discharged to home via private vehicle with his . DISCHARGE ACTIVITY: As tolerated. DISCHARGE DIET: No restrictions.
--- NOTE | 2018-02-22 09:47 | HP ---
PRIMARY CARE PHYSICIAN: Dr. Polladr DATE OF ADMISSION: 02/20/2018 TIME OF SERVICE: 1500 CHIEF COMPLAINT: Back pain. HISTORY OF PRESENT ILLNESS: Mr. Jose is a pleasant 67-year-old male with history of metastatic prostate cancer, history of tobacco abuse, now quit and chronic back pain, and BPH. Th e patient was diagnosed with prostate cancer, has been undergoing chemotherapy with Dr. Irby. He is on chronic morphine, MS Contin and hydrocodone for his pain and the pain increased acutely in int ensity and was intractable. He decided to come to the emergency department for evaluation and was se en in the emergency department. Workup was significant for elevated white blood cell count, heart rate in the 130s, and elevated whit e blood cell count. We were called for admission for possible sepsis. The patient denied any cough or sputum production, no fevers or chills, no nausea or vomiting. PAST MEDICAL HISTORY: 1. Prostate cancer. 2. Benign prostatic hypertrophy. 3. Chronic back pain. HOME MEDICATIONS: 1. MS Contin 50 mg p.o. t.i.d. 2. [place] 10/325 two q.4 hours p.r.n. 3. Gabapentin 200 mg p.o. b.i.d. 4. Prednisone 10 mg daily. 5. Flomax 0.4 mg p.o. at bedtime. PAST SURGICAL HISTORY: None. ALLERGIES: OPHTHALMIC NEOSPORIN. FAMILY HISTORY: Negative for clotting or bleeding disorder. No immune dysfunction. SOCIAL HISTORY: Past tobacco, but quit more than 10 years ago. Social alcohol only. He is , monogamous. No IV drug use. No recent travel. REVIEW OF SYSTEMS: All systems reviewed and negative except as stated per HPI. PHYSICAL EXAMINATION: VITAL SIGNS: Temperature on arrival to the ER 98.5, pulse 139, blood pressure 166/91, respiratory ra te 22, satting 96% on room air. Pain was 10/10. On arrival to the floor, temperature is 98.4, pulse 109, blood pressure 146/81, respiratory rate 16, sat 93% room air. GENERAL: He is awake, he is alert. He is oriented x3, well-developed, well-nourished [place] an male appears to be in no acute distress. HEENT: Normocephalic, atraumatic. Pupils are equal, round, reactive bilaterally. Mucous membranes moist. There was visible bleeding, no thrush. NECK: Supple. No lymphadenopathy, JVD, or thyromegaly. RESPIRATORY: Clear to auscultation bilaterally. No wheezes, no rales or rhonchi with good air movem ent. Symmetrical chest excursion. No prolonged expiratory phase. CARDIOVASCULAR: Tachycardic but regular. Normal S1, S2, no S3, S4. ABDOMEN: Soft, nontender, nondistended. No masses, organomegaly, no rebound, rigidity or guarding. Normoactive bowel sounds in all 4 quadrants. EXTREMITIES: No cyanosis or clubbing. Trace pedal edema. SKIN: Warm, moist, and well well-perfused. No rash, no lesions. MUSCULOSKELETAL: Normal to inspection. Large joints appear normal. There is no evidence of inflamm ation or palpable effusions. He has some diffuse paraspinous muscle and spinal tenderness, but does not reproduce the symptoms. NEURO: Cranial nerves II-XII are grossly intact. He has no focal deficits, 5/5 strength. He is barrera ited by pain. He has normal speech pattern. LABORATORY DATA: CBC showed a white count of 14.2, hemoglobin is 9.1, hematocrit of 28.8, and platel et count is 276,000. He has a left shift with 61% granulocytes, 20% bands, 2% metamyelocytes and 3% myelocytes. He also has 2 nucleated red blood cells. Sed rate was 63. Basic metabolic profile showed sodium 134, potassium 4.4, chloride 98, bicarbonate 24, BUN 13, creati nine 0.66, glucose 131, calcium 9.4. CK of 118, lipase of 5. Lactic acid was normal at 1.5 and his C-reactive protein was 26.5. ASSESSMENT AND PLAN: 1. Intractable back pain, likely metastatic disease. We will get an MRI of the spine. We will cont inue pain management with breakthrough IV as needed. We will notify Dr. Irby of admission. We w ill also ask Neurosurgery to evaluate once we get the MRI back. 2. Benign prostatic hypertrophy. Continue Flomax. 3. Chronic back pain. We will continue home medications as above. 4. We will continue steroids.
--- NOTE | 2018-02-23 11:33 | EKG ---
Test Reason : Blood Pressure : / mmHG Vent. Rate : 133 BPM Atrial Rate : 133 BPM P-R Int : 146 ms QRS Dur : 068 ms QT Int : 292 ms P-R-T Axes : 027 -02 012 degrees QTc Int : 434 ms Sinus tachycardia Otherwise normal ECG Confirmed by BLANCA LLANOS, JOSE ([id number]), rewrite editor EDIN HANKINS ([id number]) on 02/23/2018 11:33:02 AM Referred By: BLANCA Confirmed By:JOSE RIOS MD
== END 2018-02-22 09:19 | disposition home or self-care (01) ==
LOC: ERS 00:31 → 2SE 03:20 → INTOOBSV 03:20
PROVIDERS: ADMIT Internal Medicine; ATTEND Internal Medicine
DX: M84.58XA Pathological fracture in neoplastic disease, other specified site, initial encounter for fracture (principal); C79.51 Secondary malignant neoplasm of bone; M48.04 Spinal stenosis, thoracic region; C61 Malignant neoplasm of prostate; G95.29 Other cord compression; N40.0 Benign prostatic hyperplasia without lower urinary tract symptoms; E83.52 Hypercalcemia; I12.9 Hypertensive chronic kidney disease with stage 1 through stage 4 chronic kidney disease, or unspecified chronic kidney disease; N18.9 Chronic kidney disease, unspecified; E78.00 Pure hypercholesterolemia, unspecified; K59.09 Other constipation; Z87.891 Personal history of nicotine dependence; Z79.891 Long term (current) use of opiate analgesic; Z79.82 Long term (current) use of aspirin; Z79.899 Other long term (current) drug therapy; Z88.8 Allergy status to other drugs, medicaments and biological substances
CPT/HCPCS: 72141; 72146; 72148; 77014; 77290; 77412; 77417; 80048 ×2; 82550; 83605; 83690; 83735; 85025 ×2; 85652; 86140; 87040; 93005; 96361; 96365; 96375 ×2; 96376; 99284; G0378; L0639; 36415; J1100; J1885; J1956; J2060; J2270; J2543; J3010; J3370; J7050; J8540